=== PATIENT | male | born 1980 | race Caucasian/White ===

== ENCOUNTER 2019-12-21 13:52 | Emergency (ER) | payer OTHER ==
[2019-12-21 14:08] VITALS: BP 150/87; PULSE 99; RESP 18; TEMP 98.5
--- NOTE | 2019-12-21 14:40 | ED ---
General Adult HPI - General Chief complaint: Recheck/Abnormal Lab/Rx Stated complaint: Medication Refills Time Seen by Provider: 12/21/19 14:10 Source: patient, RN notes reviewed Mode of arrival: ambulatory Limitations: no limitations - History of Present Illness Initial comments: 39-year-old male present to the emergency Department with chief complaint of needing medication refill. Patient recently moved from [place] to [place] for work. Patient states that he was on Xanax 2 mg twice a day for several years. Patient states that he's been out for 2 days. Patient states that he feels very shaky. Patient also states that he is out of his amlodipine 10 mg. Patient denies any suicidal or homicidal ideation. Patient states that he does not want to withdrawal from his medication. - Related Data Previous Rx's Medication Instructions Recorded ALPRAZolam [Xanax] 2 mg PO Q8H 3 Days #9 tab 12/21/19 amLODIPine [Norvasc] 10 mg PO DAILY #30 tablet 12/21/19 Allergies Allergy/AdvReac Type Severity Reaction Status Date / Time No Known Allergies Allergy Verified 12/21/19 14:07 Review of Systems ROS Statement: Those systems with pertinent positive or pertinent negative responses have been documented in the HPI. ROS Other: All systems not noted in ROS Statement are negative. Past Medical History Past Medical History: Hypertension Additional Past Medical History / Comment(s): anemi, vascular issue in legs. Past Surgical History: Adenoidectomy, Tonsillectomy Past Psychological History: Anxiety, Depression Smoking Status: Current every day smoker Past Alcohol Use History: Rare Past Drug Use History: Marijuana General Exam Limitations: no limitations General appearance: alert, in no apparent distress Head exam: Present: atraumatic, normocephalic, normal inspection ENT exam: Present: normal exam, mucous membranes moist Neck exam: Present: normal inspection, full ROM. Absent: tenderness, meningismus, lymphadenopathy Respiratory exam: Present: normal lung sounds bilaterally. Absent: respiratory distress, wheezes, rales, rhonchi, stridor Cardiovascular Exam: Present: regular rate, normal rhythm, normal heart sounds. Absent: systolic murmur, diastolic murmur, rubs, gallop, clicks Neurological exam: Present: alert, oriented X3, CN II-XII intact Course Vital Signs 12/21/19 14:04 Temperature 98.5 F Pulse Rate 99 Respiratory 18 Rate Blood Pressure 150/87 O2 Sat by Pulse 98 Oximetry Medical Decision Making - Medical Decision Making Patient does have prescription bottles with him. Patient had last refill 11/19/2019. Patient will be given a 3 day prescription for his Xanax and a 30 day supply of Norvasc. Disposition Clinical Impression: Encounter for medication refill, Hypertension, Anxiety Disposition: HOME SELF-CARE Condition: Stable Instructions (If sedation given, give patient instructions): Hypertension (ED) Additional Instructions: Please return to the Emergency Department if symptoms worsen or any other concerns. Prescriptions: amLODIPine [Norvasc] 10 mg PO DAILY #30 tablet ALPRAZolam [Xanax] 2 mg PO Q8H 3 Days #9 tab Is patient prescribed a controlled substance at d/c from ED?: Yes When asked, does pt state using other controlled substances?: No If prescribed controlled substance>3 days was MAPS reviewed?: Prescribed <3 Days Referrals: None,Stated [Primary Care Provider] - 1-2 days Jose G Harrell MD [REFERRING] - 1-2 days Time of Disposition: 14:38
== END 2019-12-21 14:53 | disposition home or self-care (01) ==
LOC: EC 13:52
DX: Z76.0 Encounter for issue of repeat prescription (principal); I10 Essential (primary) hypertension; F41.9 Anxiety disorder, unspecified; F17.200 Nicotine dependence, unspecified, uncomplicated
CPT/HCPCS: 99281

== ENCOUNTER 2019-12-24 09:47 | Emergency (ER) | payer OTHER ==
[2019-12-24 10:00] VITALS: BP 120/83; PULSE 102; RESP 18; TEMP 97.6
[2019-12-24] MEDS ORDERED: ALPRAZolam 0.25 MG TAB PO STA (10:04)
[2019-12-24] MEDS ORDERED: ALPRAZolam 0.5 MG TAB PO STA (10:12)
[2019-12-24 10:19] LABS: Glucose,Whole Blood 101 mg/dL (75-99)
--- NOTE | 2019-12-24 10:22 | ED ---
Recheck HPI - General Chief Complaint: Recheck/Abnormal Lab/Rx Stated Complaint: Revisit - med refill Time Seen by Provider: 12/24/19 10:01 Source: patient Mode of arrival: ambulatory Limitations: no limitations - History of Present Illness Initial Comments: 39yo male presenting to the ER today for cc of medication refill. Pt states he is out of his xanax that he was prescribed 3 days ago. Patient states he normally takes 2mg tablets. Patient states he is attempting to get into his PCP office. Patient denies chest pain, SOB or additional complaints. He appears well nontoxic in jovial spirits on arrival. - Related Data Previous Rx's Medication Instructions Recorded ALPRAZolam [Xanax] 2 mg PO Q8H 3 Days #9 tab 12/21/19 amLODIPine [Norvasc] 10 mg PO DAILY #30 tablet 12/21/19 Allergies Allergy/AdvReac Type Severity Reaction Status Date / Time No Known Allergies Allergy Verified 12/24/19 10:00 Review of Systems ROS Statement: Those systems with pertinent positive or pertinent negative responses have been documented in the HPI. ROS Other: All systems not noted in ROS Statement are negative. Past Medical History Past Medical History: Hypertension Additional Past Medical History / Comment(s): anemi, vascular issue in legs. Past Surgical History: Adenoidectomy, Tonsillectomy Past Psychological History: Anxiety, Depression Smoking Status: Current every day smoker Past Alcohol Use History: Rare Past Drug Use History: Marijuana General Exam - General Exam Comments Initial Comments: General: The patient is awake and alert, in no distress, and does not appear acutely ill. Eye: Pupils are equal, round and reactive to light, extra-ocular movements are intact. No nystagmus. There is normal conjunctiva bilaterally. No signs of icterus. Musculoskeletal: Normal ROM, no tenderness. Strength 5/5. Sensation intact. Radial pulses equal bilaterally 2+. Neurological: A&O x 3. CN II-XII intact grossly, There are no obvious motor or sensory deficits. Coordination appears grossly intact. Speech is normal. Skin: Skin is warm and dry and no rashes or lesions are noted. Psychiatric: Cooperative, appropriate mood & affect, normal judgment. Limitations: no limitations Course Vital Signs 12/24/19 09:57 Temperature 97.6 F Pulse Rate 102 H Respiratory 18 Rate Blood Pressure 120/83 O2 Sat by Pulse 98 Oximetry Medical Decision Making - Medical Decision Making Well appearing 39yo male presenting with anxiety. Out of xanax. prescribed 3 days agos. At this time I recommend getting further refills from his PCP not multiple providers. Patient is agreeable to dose in the ER and discharge home. Patient wanted glucose checked and it was within acceptable limits. - Lab Data Lab Results 12/24/19 Range/Units 10:17 POC Glucose (mg/dL) 101 H (75-99) mg/dL POC Glu Laboratory Technical Specialist ID Ronaldo Tierney Disposition Clinical Impression: Medication refill, Anxiety Disposition: HOME SELF-CARE Condition: Good Instructions (If sedation given, give patient instructions): Anxiety (ED) Additional Instructions: Please use medication as discussed. Please follow-up with family doctor in the next 2 days. Please return to emergency room if the symptoms increase or worsen or for any other concerns. Is patient prescribed a controlled substance at d/c from ED?: No Referrals: None,Stated [Primary Care Provider] - 1-2 days Time of Disposition: 10:19
== END 2019-12-24 11:13 | disposition home or self-care (01) ==
LOC: EC 09:47
DX: F41.9 Anxiety disorder, unspecified (principal); Z76.0 Encounter for issue of repeat prescription; F17.200 Nicotine dependence, unspecified, uncomplicated
CPT/HCPCS: 36415; 99283

== ENCOUNTER → 2020-05-31 | Outpatient (CLI) | payer OTHER ==
--- NOTE | 2020-05-31 11:20 | US ---
EXAMINATION TYPE: US liver DATE OF EXAM: 05/31/2020 COMPARISON: NONE CLINICAL HISTORY: B18.2 Chronic viral hepatitis C. EXAM MEASUREMENTS: Liver Length: 18.8 cm, possibly underestimated, suspect the liver is enlarged Gallbladder Wall: 0.2 cm CBD: 0.5 cm Right Kidney: 11.9 x 6.3 x 5.0 cm Pancreas: ? 3.5 cm hypoechoic, irregular mass head/body portion, possibly uncinate process Liver: Partially Obscured by overlying bowel gas and the echotexture is somewhat coarse Gallbladder: Large gallstone Evidence for sonographic Velazco's sign: No CBD: wnl Right Kidney: No hydronephrosis or masses seen Sub optimal exam overall due to very large patient size. IMPRESSION: The pancreas is incompletely evaluated. Hypoechoic abnormality may be adjacent to the sandhu creas rather than within the pancreatic head and body. Pancreas CT or MRI may be of benefit. Cholelit hiasis. Coarse echotexture of the liver consistent with underlying hepatocellular disease, suspect he patomegaly.
== END | disposition home or self-care (01) ==
LOC: RADUSWWP 07:06
PROVIDERS: ATTEND Nurse Practitioner
DX: B18.2 Chronic viral hepatitis C (principal); K80.20 Calculus of gallbladder without cholecystitis without obstruction; R93.3 Abnormal findings on diagnostic imaging of other parts of digestive tract
CPT/HCPCS: 76705

== ENCOUNTER → 2020-06-01 | Outpatient (CLI) | payer OTHER ==
[2020-06-01 17:32] LABS: INR 0.9 (0.90-1.11); Prothrombin Time 9.9 sec (9.9-11.9)
[2020-06-01 17:42] LABS: African American GFR (CKD) 125.1 (60.0-200.0); Albumin 4.8 g/dL (3.80-4.90); Albumin/Globulin Ratio 1.78 (1.60-3.17); Anion Gap 14.7 mmol/L (4.00-12.00); BUN/Creat Ratio 18.89 Ratio (12.00-20.00); Calcium 9.1 mg/dL (8.7-10.3); Carbon Dioxide 21.3 mmol/L (21.6-31.8); Globulin 2.7 g/dL (1.6-3.3); Potassium 4.3 mmol/L (3.5-5.5); Total Bilirubin 0.5 mg/dL (0.3-1.2); Total Protein 7.5 g/dL (6.2-8.2)
[2020-06-01 18:11] LABS: HIV 2 AB Non-Reactive (Non-Reactive); HIV AB P24 Non-Reactive (Non-Reactive); HIV P24 AG Non-Reactive (Non-Reactive)
== END | disposition home or self-care (01) ==
LOC: LABWHC1 08:29
PROVIDERS: ATTEND Nurse Practitioner
DX: B18.2 Chronic viral hepatitis C (principal)
CPT/HCPCS: 36415; 80053; 82105; 85610; 87390; 87522

== ENCOUNTER → 2020-06-10 | Outpatient (CLI) | payer OTHER ==
--- NOTE | 2020-06-11 07:37 | CT ---
EXAMINATION TYPE: CT abdomen w con DATE OF EXAM: 06/10/2020 COMPARISON: None HISTORY: Abnormal findings on US, r/o uncinate v liver lesion CT DLP: 2049.80 mGycm Automated exposure control for dose reduction was used. TECHNIQUE: Helical acquisition of images was performed from the lung bases through the top of iliac crest to include entire abdomen. CONTRAST: Performed without Oral Contrast and with IV Contrast, patient injected with 100 mL of Isovue 370. FINDINGS: The visualized lung bases are clear. There are no gallstones, gallbladder wall thickening, distention or pericholecystic fluid. There is n o biliary ductal dilatation. There is no focal mass or organomegaly of the liver pancreas, spleen or adrenal glands. The kidneys excrete contrast promptly and symmetrically. There is a 2.5 cm hypodense mass in the post erior left kidney which does not meet the criteria for simple cyst. MRI of the kidneys might be usefu l for further evaluation there is no hydronephrosis. There is no retroperitoneal adenopathy or hemorrhage in the caliber of the abdominal aorta is normal. The bowel loops are normal in caliber and there is no evidence of obstruction. No inflammatory change s are identified in the mesentery and there is no free intraperitoneal air or fluid. The visualized osseous structures and soft tissues are intact. IMPRESSION: 1. No significant abnormality liver pancreas. 2.The left kidney which requires further evaluation of a 2.5 cm mass which is nonspecific criteria fo r simple cyst. MRI would be useful for further evaluation.
== END | disposition home or self-care (01) ==
LOC: RADCTMAIN 18:11
PROVIDERS: ATTEND Internal Medicine Gastroenterology
DX: N28.1 Cyst of kidney, acquired (principal)
CPT/HCPCS: 74160; Q9967

== ENCOUNTER 2020-11-05 21:06 | Emergency (ER) | payer OTHER ==
[2020-11-05 21:20] VITALS: RESP 18; TEMP 98.8
[2020-11-05] MEDS: KETOROLAC 15 MG/ML 1 ML VIAL IM STA (22:08)
[2020-11-05] MEDS: CYCLOBENZAPRINE 10 MG TAB PO STA (22:08)
--- NOTE | 2020-11-05 22:38 | XR ---
EXAMINATION TYPE: XR lumbar spine 2 or 3V DATE OF EXAM: 11/05/2020 COMPARISON: NONE HISTORY: Back pain TECHNIQUE: 3 views FINDINGS: There is mild dextroscoliosis. There is degenerative disc space narrowing in the lower lumb ar spine. There is no compression fracture. Sacroiliac joints are intact. IMPRESSION: Dextroscoliosis. No fracture seen. Spondylotic changes.
--- NOTE | 2020-11-05 22:40 | ED ---
Back Pain HPI - General Chief Complaint: Back Pain/Injury Stated Complaint: back pain Time Seen by Provider: 11/05/20 21:23 Source: patient, RN notes reviewed Limitations: no limitations - History of Present Illness Initial Comments: Patient is a 40-year-old male that presents to emergency, complaining of right lower back pain or he notes that he twisted antibiotic motion and felt some pain in his lower back. He notes that this was at work. Hetry to go back to work as has been a year since she's been there. He notes that he does have some medical issues with vascular and circulation his bilateral lower extremities. He denied any weakness numbness tingling down his bilateral lower extremities. He denied any saddle anesthesia or bladder or bowel incontinence or retention. He was otherwise a well-appearing 40-year-old male. He was requesting some muscle relaxers to help with the tightness. He denied any chest pain shortness of breath headache nausea vomiting diarrhea constipation fever fatigue chills. - Related Data Previous Rx's Medication Instructions Recorded ALPRAZolam [Xanax] 2 mg PO Q8H 3 Days #9 tab 12/21/19 amLODIPine [Norvasc] 10 mg PO DAILY #30 tablet 12/21/19 Allergies Allergy/AdvReac Type Severity Reaction Status Date / Time No Known Allergies Allergy Verified 11/05/20 21:20 Review of Systems ROS Statement: Those systems with pertinent positive or pertinent negative responses have been documented in the HPI. ROS Other: All systems not noted in ROS Statement are negative. Past Medical History Past Medical History: Hypertension Additional Past Medical History / Comment(s): anemi, vascular issue in legs. History of Any Multi-Drug Resistant Organisms: None Reported Past Surgical History: Adenoidectomy, Tonsillectomy Past Psychological History: Anxiety, Depression Smoking Status: Current every day smoker Past Alcohol Use History: Rare Past Drug Use History: Marijuana General Exam Limitations: no limitations General appearance: alert, in no apparent distress, obese Head exam: Present: atraumatic, normocephalic, normal inspection Eye exam: Present: normal appearance, PERRL, EOMI. Absent: scleral icterus, conjunctival injection, periorbital swelling Neck exam: Present: normal inspection Respiratory exam: Present: normal lung sounds bilaterally. Absent: respiratory distress, wheezes, rales, rhonchi, stridor Cardiovascular Exam: Present: regular rate, normal rhythm, normal heart sounds. Absent: systolic murmur, diastolic murmur, rubs, gallop, clicks Extremities exam: Present: normal inspection, full ROM, normal capillary refill. Absent: tenderness, pedal edema, joint swelling, calf tenderness Back exam: Present: normal inspection, tenderness (Right lower back.), muscle spasm (Right lower back) Neurological exam: Present: alert, oriented X3 Psychiatric exam: Present: normal affect, normal mood Skin exam: Present: warm, dry, intact, normal color. Absent: rash Course Vital Signs 11/05/20 21:18 Temperature 98.8 F Pulse Rate 88 Respiratory 18 Rate Blood Pressure 128/65 O2 Sat by Pulse 97 Oximetry Medical Decision Making - Medical Decision Making 40-year-old male complaining of right lower back pain after twisting wouldn't work. X-ray of the lumbar spine, 10 mg of Flexeril, 15 g of Toradol ordered. X-ray imaging negative for any acute process. Case discussed with Dr. Osullivan, patient can discharge home. - Radiology Data Radiology results: report reviewed, image reviewed Lumbar spine x-ray: Dextrose scoliosis. No fracture seen. Spondylitic changes. Disposition Clinical Impression: Lumbar strain, Mechanical back pain Disposition: HOME SELF-CARE Condition: Stable Instructions (If sedation given, give patient instructions): Acute Low Back Pain (ED) Additional Instructions: Please return to the Emergency Department if symptoms worsen or any other concerns. Follow-up with primary care 1-2 days. Take muscle relaxer as prescribed. Avoid operating heavy machinery while on muscle relaxer. Is patient prescribed a controlled substance at d/c from ED?: No Referrals: Ceferino Smith MD [Primary Care Provider] - 1-2 days Time of Disposition: 22:53
[2020-11-05] MEDS: CYCLOBENZAPRINE 10MG STARTER 3 TAB BTL PO STA (22:59)
[2020-11-05 23:03] VITALS: BP 121/83; PULSE 81
== END 2020-11-05 23:01 | disposition home or self-care (01) ==
LOC: EC 21:06
DX: S39.012A Strain of muscle, fascia and tendon of lower back, initial encounter (principal); I10 Essential (primary) hypertension; F32.9 Major depressive disorder, single episode, unspecified; F41.9 Anxiety disorder, unspecified; F17.200 Nicotine dependence, unspecified, uncomplicated; F12.90 Cannabis use, unspecified, uncomplicated; X50.1XXA Overexertion from prolonged static or awkward postures, initial encounter; Y99.0 Civilian activity done for income or pay
CPT/HCPCS: 72100; 96372; 99283

== ENCOUNTER 2021-04-29 17:42 | Observation (INO) | payer OTHER ==
--- NOTE | 2021-04-29 19:08 | ED ---
General Adult HPI - General Chief complaint: Extremity Problem,Nontraumatic Stated complaint: cellulitis Time Seen by Provider: 04/29/21 18:59 Source: patient, EMS Mode of arrival: EMS Limitations: no limitations - History of Present Illness Initial comments: Patient presents to the ED by ambulance for evaluation. Patient states that he has had bilateral lower extremity edema for the past month or so. Patient also states that he has had bilateral lower leg erythema and pain for the past month or so. Patient states that his primary care provider (Dr. Smith) prescribed him a course of Augmentin, which he has completed without any improvement in his signs/symptoms. Patient also states that he has a left lower leg wound which has been draining serous fluid. Patient denies fever or chills, headache, focal neuro deficit, chest pain or pressure, dyspnea, orthopnea, cough or cold symptoms, palpitations, dizziness, abdominal pain, nausea/vomiting/diarrhea, dysuria or urinary symptoms, decreased urine output, or any other symptoms or complaints. - Related Data Previous Rx's Medication Instructions Recorded ALPRAZolam [Xanax] 2 mg PO Q8H 3 Days #9 tab 12/21/19 amLODIPine [Norvasc] 10 mg PO DAILY #30 tablet 12/21/19 Cyclobenzaprine [Flexeril] 10 mg PO TID PRN #15 tab 11/05/20 Allergies Allergy/AdvReac Type Severity Reaction Status Date / Time No Known Allergies Allergy Verified 11/05/20 21:20 Review of Systems ROS Statement: Those systems with pertinent positive or pertinent negative responses have been documented in the HPI. ROS Other: All systems not noted in ROS Statement are negative. Past Medical History Past Medical History: Hypertension Additional Past Medical History / Comment(s): anemi, vascular issue in legs. History of Any Multi-Drug Resistant Organisms: None Reported Past Surgical History: Adenoidectomy, Tonsillectomy Past Psychological History: Anxiety, Depression Smoking Status: Current every day smoker Past Alcohol Use History: Rare Past Drug Use History: Marijuana General Exam Limitations: no limitations General appearance: alert, in no apparent distress Head exam: Present: atraumatic, normocephalic Eye exam: Present: normal appearance, EOMI ENT exam: Present: mucous membranes moist Neck exam: Present: other (Trachea is in midline) Respiratory exam: Present: normal lung sounds bilaterally. Absent: respiratory distress, wheezes, rales, rhonchi, stridor Cardiovascular Exam: Present: regular rate, normal rhythm, normal heart sounds, other (Normal radial and dorsalis pedis pulses bilaterally) GI/Abdominal exam: Present: soft. Absent: distended, tenderness, guarding Extremities exam: Present: other (Bilateral pretibial and pedal pitting edema; bilateral hand pitting edema; blanching erythema and tenderness (consistent with cellulitis) is noted to bilateral lower tibial regions; no crepitation is appreciated; small left tibial wound draining serous fluid; negative Homans sign bilaterally). Absent: calf tenderness Neurological exam: Present: alert, oriented X3. Absent: motor sensory deficit Psychiatric exam: Present: normal affect, normal mood Skin exam: Present: warm, dry Course Vital Signs 04/29/21 17:48 Temperature 98.9 F Pulse Rate 86 Respiratory 18 Rate Blood Pressure 118/82 O2 Sat by Pulse 98 Oximetry - Reevaluation(s) Reevaluation #1: 04/29/21 20:37 Case, H&P, test results and ED management were discussed with Dr. Smith. He accepts hospital admission. He has no further recommendations at this time. 04/29/21 20:43 Patient denies development of any new symptoms while in the ED. Patient remains alert and breathing comfortably. Patient is aware of his test results, and he agrees with hospital admission at this time. EKG Findings - EKG Comments: EKG Findings:: Normal sinus rhythm, ventricular rate of 62 bpm, no ectopy, low voltage QRS, normal OK and QRS intervals, normal QT interval, normal axis, no ST or T-wave abnormality Medical Decision Making - Medical Decision Making Given the patient's diffuse peripheral edema, bilateral lower leg cellulitis and failed outpatient treatment with oral antibiotics, will admit the patient to the hospital for IV antibiotic treatment and further evaluation. Patient is afebrile and not septic. Patient's labs are fairly unremarkable. I am uncertain of the etiology of the patient's diffuse peripheral edema at this time. Dr. Smith has accepted hospital admission. - Lab Data Result diagrams: 04/29/21 19:09 04/29/21 19:09 Lab Results 04/29/21 04/29/21 04/29/21 Range/Units 19: 19: 19:09 WBC 6.3 (3.8-10.6) k/uL RBC 4.09 L (4.30-5.90) m/uL Hgb 11.8 L (13.0-17.5) gm/dL Hct 34.9 L (39.0-53.0) % MCV 85.2 (80.0-100.0) fL MCH 28.8 (25.0-35.0) pg MCHC 33.9 (31.0-37.0) g/dL RDW 13.6 (11.5-15.5) % Plt Count 157 (150-450) k/uL MPV 7.1 Neutrophils % 65 % Lymphocytes % 25 % Monocytes % 6 % Eosinophils % 2 % Basophils % 1 % Neutrophils # 4.1 (1.3-7.7) k/uL Lymphocytes # 1.5 (1.0-4.8) k/uL Monocytes # 0.4 (0-1.0) k/uL Eosinophils # 0.1 (0-0.7) k/uL Basophils # 0.1 (0-0.2) k/uL PT 10.7 (9.0-12.0) sec INR 1.0 (<1.2) APTT 26.0 (22.0-30.0) sec Sodium 138 (137-145) mmol/L Potassium 4.0 (3.5-5.1) mmol/L Chloride 102 (98-107) mmol/L Carbon Dioxide 29 (22-30) mmol/L Anion Gap 7 mmol/L BUN 10 (9-20) mg/dL Creatinine 0.88 (0.66-1.25) mg/dL Est GFR (CKD-EPI)AfAm >90 (>60 ml/min/1.73 sqM) Est GFR (CKD-EPI)NonAf >90 (>60 ml/min/1.73 sqM) Glucose 90 (74-99) mg/dL Plasma Lactic Acid Martin (0.7-2.0) mmol/L Calcium 9.0 (8.4-10.2) mg/dL Total Bilirubin 0.6 (0.2-1.3) mg/dL AST 21 (17-59) U/L ALT 14 (4-49) U/L Alkaline Phosphatase 55 (38-126) U/L Troponin I (0.000-0.034) ng/mL NT-Pro-B Natriuret Pep pg/mL Total Protein 7.5 (6.3-8.2) g/dL Albumin 4.2 (3.5-5.0) g/dL Urine Color Urine Appearance (Clear) Urine pH (5.0-8.0) Ur Specific [place] (1.001-1.035) Urine Protein (Negative) Urine Glucose (UA) (Negative) Urine Ketones (Negative) Urine Blood (Negative) Urine Nitrite (Negative) Urine Bilirubin (Negative) Urine Urobilinogen (<2.0) mg/dL Ur Leukocyte Esterase (Negative) Coronavirus (PCR) (Not Detectd) 04/29/21 04/29/21 04/29/21 Range/Units 19:09 19:09 19:32 WBC (3.8-10.6) k/uL RBC (4.30-5.90) m/uL Hgb (13.0-17.5) gm/dL Hct (39.0-53.0) % MCV (80.0-100.0) fL MCH (25.0-35.0) pg MCHC (31.0-37.0) g/dL RDW (11.5-15.5) % Plt Count (150-450) k/uL MPV Neutrophils % % Lymphocytes % % Monocytes % % Eosinophils % % Basophils % % Neutrophils # (1.3-7.7) k/uL Lymphocytes # (1.0-4.8) k/uL Monocytes # (0-1.0) k/uL Eosinophils # (0-0.7) k/uL Basophils # (0-0.2) k/uL PT (9.0-12.0) sec INR (<1.2) APTT (22.0-30.0) sec Sodium (137-145) mmol/L Potassium (3.5-5.1) mmol/L Chloride (98-107) mmol/L Carbon Dioxide (22-30) mmol/L Anion Gap mmol/L BUN (9-20) mg/dL Creatinine (0.66-1.25) mg/dL Est GFR (CKD-EPI)AfAm (>60 ml/min/1.73 sqM) Est GFR (CKD-EPI)NonAf (>60 ml/min/1.73 sqM) Glucose (74-99) mg/dL Plasma Lactic Acid Martin (0.7-2.0) mmol/L Calcium (8.4-10.2) mg/dL Total Bilirubin (0.2-1.3) mg/dL AST (17-59) U/L ALT (4-49) U/L Alkaline Phosphatase (38-126) U/L Troponin I <0.012 (0.000-0.034) ng/mL NT-Pro-B Natriuret Pep 105 pg/mL Total Protein (6.3-8.2) g/dL Albumin (3.5-5.0) g/dL Urine Color Light Yellow Urine Appearance Clear (Clear) Urine pH 7.0 (5.0-8.0) Ur Specific [place] 1.006 (1.001-1.035) Urine Protein Negative (Negative) Urine Glucose (UA) Negative (Negative) Urine Ketones Negative (Negative) Urine Blood Negative (Negative) Urine Nitrite Negative (Negative) Urine Bilirubin Negative (Negative) Urine Urobilinogen <2.0 (<2.0) mg/dL Ur Leukocyte Esterase Negative (Negative) Coronavirus (PCR) (Not Detectd) 04/29/21 04/29/21 Range/Units 19:32 19:32 WBC (3.8-10.6) k/uL RBC (4.30-5.90) m/uL Hgb (13.0-17.5) gm/dL Hct (39.0-53.0) % MCV (80.0-100.0) fL MCH (25.0-35.0) pg MCHC (31.0-37.0) g/dL RDW (11.5-15.5) % Plt Count (150-450) k/uL MPV Neutrophils % % Lymphocytes % % Monocytes % % Eosinophils % % Basophils % % Neutrophils # (1.3-7.7) k/uL Lymphocytes # (1.0-4.8) k/uL Monocytes # (0-1.0) k/uL Eosinophils # (0-0.7) k/uL Basophils # (0-0.2) k/uL PT (9.0-12.0) sec INR (<1.2) APTT (22.0-30.0) sec Sodium (137-145) mmol/L Potassium (3.5-5.1) mmol/L Chloride (98-107) mmol/L Carbon Dioxide (22-30) mmol/L Anion Gap mmol/L BUN (9-20) mg/dL Creatinine (0.66-1.25) mg/dL Est GFR (CKD-EPI)AfAm (>60 ml/min/1.73 sqM) Est GFR (CKD-EPI)NonAf (>60 ml/min/1.73 sqM) Glucose (74-99) mg/dL Plasma Lactic Acid Martin 0.8 (0.7-2.0) mmol/L Calcium (8.4-10.2) mg/dL Total Bilirubin (0.2-1.3) mg/dL AST (17-59) U/L ALT (4-49) U/L Alkaline Phosphatase (38-126) U/L Troponin I (0.000-0.034) ng/mL NT-Pro-B Natriuret Pep pg/mL Total Protein (6.3-8.2) g/dL Albumin (3.5-5.0) g/dL Urine Color Urine Appearance (Clear) Urine pH (5.0-8.0) Ur Specific [place] (1.001-1.035) Urine Protein (Negative) Urine Glucose (UA) (Negative) Urine Ketones (Negative) Urine Blood (Negative) Urine Nitrite (Negative) Urine Bilirubin (Negative) Urine Urobilinogen (<2.0) mg/dL Ur Leukocyte Esterase (Negative) Coronavirus (PCR) Not Detected (Not Detectd) - Radiology Data Bilateral tib/fib x-rays: Soft tissue swelling. No fracture seen. Disposition Clinical Impression: Peripheral edema, Bilateral lower leg cellulitis Disposition: ADMITTED IP TO THIS HOSP Condition: Stable Is patient prescribed a controlled substance at d/c from ED?: No Referrals: Ceferino Smith MD [Primary Care Provider] - 1-2 days Time of Disposition: 20:43
[2021-04-29 19:20] LABS: Basophils # (A) 0.1 k/uL (0-0.2); Basophils % (A) 1 %; Eosinophils # (A) 0.1 k/uL (0-0.7); Eosinophils % (A) 2 %; HCT 34.9 % (39.0-53.0); HGB 11.8 gm/dL (13.0-17.5); Lymphocytes # (A) 1.5 k/uL (1.0-4.8); Lymphocytes % (A) 25 %; MCH 28.8 pg (25.0-35.0); MCHC 33.9 g/dL (31.0-37.0); MCV 85.2 fL (80.0-100.0); Mean Platelet Volume 7.1; Monocytes # (A) 0.4 k/uL (0-1.0); Monocytes % (A) 6 %; Neutrophils # (A) 4.1 k/uL (1.3-7.7); Neutrophils % (A) 65 %; Platelet Count 157 k/uL (150-450); RBC 4.09 m/uL (4.30-5.90); RDW 13.6 % (11.5-15.5); WBC 6.3 k/uL (3.8-10.6)
[2021-04-29 19:31] LABS: ALT 14 U/L (4-49); AST 21 U/L (17-59); African American GFR (CKD) >90 (>60 ml/min/1.73 sqM); Albumin 4.2 g/dL (3.5-5.0); Alkaline Phosphatase 55 U/L (38-126); Anion Gap 7 mmol/L; Blood Urea Nitrogen 10 mg/dL (9-20); Carbon Dioxide 29 mmol/L (22-30); Chloride 102 mmol/L (98-107); Glucose 90 mg/dL (74-99); Non-African American GFR(CKD) >90 (>60 ml/min/1.73 sqM); Sodium 138 mmol/L (137-145); Total Bilirubin 0.6 mg/dL (0.2-1.3); Total Protein 7.5 g/dL (6.3-8.2)
[2021-04-29 19:32] LABS: Prothrombin Time 10.7 sec (9.0-12.0)
[2021-04-29 19:55] LABS: Appearance,Urine Clear (Clear); Bilirubin,Urine Negative (Negative); Blood,Urine Negative (Negative); Color,Urine Light Yellow; Glucose,Urine (UA) Negative (Negative); Ketones,Urine Negative (Negative); Leukocyte Esterase,Urine Negative (Negative); Nitrite,Urine Negative (Negative); Protein,Urine Negative (Negative); Specific Gravity,Urine 1.006 (1.001-1.035); Urobilinogen,Urine <2.0 mg/dL (<2.0)
[2021-04-29] MEDS ORDERED: VANCOMYCIN IV PER PHARMACY 1 EACH MISC MISCELLANE STA (20:00)
[2021-04-29] MEDS ORDERED: VANCOMYCIN 2,000 MG in SODIUM CHLORIDE 0.9% 500 ML 500 ML IVPB STA (20:02)
--- NOTE | 2021-04-29 20:36 | XR ---
EXAMINATION TYPE: XR tibia fibula bilateral DATE OF EXAM: 04/29/2021 COMPARISON: NONE HISTORY: Leg redness TECHNIQUE: 4 views each tibia and fibula FINDINGS: There is bilateral Achilles calcaneal spurring. There is mild subcutaneous edema around the lower legs. I see no fracture nor dislocation. There is no evidence of bone destruction. IMPRESSION: Soft tissue swelling. No fracture seen.
[2021-04-29] MEDS ORDERED: MORPHINE SULFATE 4 MG/ML SYRINGE IV PRN (20:44)
[2021-04-29] MEDS ORDERED: NALOXONE 0.4 MG/ML 1 ML VIAL IV PRN (20:44)
[2021-04-30] MEDS ORDERED: VANCOMYCIN 2,000 MG in SODIUM CHLORIDE 0.9% 500 ML 500 ML IVPB SCH (05:00)
[2021-04-30 08:15] LABS: Basophils % (A) 1 %; Eosinophils # (A) 0.1 k/uL (0-0.7); Eosinophils % (A) 2 %; HCT 38.5 % (39.0-53.0); HGB 12.5 gm/dL (13.0-17.5); Hypochromasia Slight; Lymphocytes # (A) 1.8 k/uL (1.0-4.8); Lymphocytes % (A) 28 %; MCH 28.4 pg (25.0-35.0); MCHC 32.4 g/dL (31.0-37.0); MCV 87.7 fL (80.0-100.0); Mean Platelet Volume 6.6; Monocytes # (A) 0.4 k/uL (0-1.0); Monocytes % (A) 5 %; Neutrophils # (A) 4.2 k/uL (1.3-7.7); Neutrophils % (A) 63 %; Platelet Count 170 k/uL (150-450); RBC 4.39 m/uL (4.30-5.90); WBC 6.6 k/uL (3.8-10.6)
[2021-04-30 08:27] LABS: ALT 14 U/L (4-49); AST 24 U/L (17-59); African American GFR (CKD) >90 (>60 ml/min/1.73 sqM); Albumin 4.1 g/dL (3.5-5.0); Alkaline Phosphatase 48 U/L (38-126); Anion Gap 10 mmol/L; Blood Urea Nitrogen 10 mg/dL (9-20); Calcium 9.1 mg/dL (8.4-10.2); Carbon Dioxide 25 mmol/L (22-30); Chloride 107 mmol/L (98-107); Glucose 108 mg/dL (74-99); Non-African American GFR(CKD) >90 (>60 ml/min/1.73 sqM); Potassium 4.4 mmol/L (3.5-5.1); Sodium 142 mmol/L (137-145); Total Bilirubin 0.7 mg/dL (0.2-1.3); Total Protein 7.7 g/dL (6.3-8.2)
[2021-04-30] MEDS ORDERED: FUROSEMIDE 40 MG TAB PO STA (13:57)
--- NOTE | 2021-04-30 14:44 | PN ---
PROGRESS NOTE CHIEF COMPLAINT: Swelling in the lower extremities with cellulitis. HISTORY OF PRESENT ILLNESS: This gentleman is about the same. Vancomycin has been started. PHYSICAL EXAM: Vital signs are normal. Chest is clear. Cardiac exam is normal. Abdomen is soft, nontender. Legs are still quite edematous and erythematous below the knees. IMPRESSION: Lower extremity edema, cellulitis. PLAN: Add Lasix 40 mg orally once a day. MMODL / IJN: [id number] /
--- NOTE | 2021-04-30 14:44 | HP ---
HISTORY AND PHYSICAL CHIEF COMPLAINT: Pain and swelling in the lower extremities. HISTORY OF PRESENT ILLNESS: This is another admission for this 40-year-old white male. He has had some edema in the lower extremities with cellulitis for about a month. He was treated with Augmentin, which he says did not help at all. He came to emergency room when it grew more swollen, painful and red. REVIEW OF SYSTEMS: He has had some chills, no fever. He has had no headaches, chest pain, abdominal pain, nausea, vomiting, diarrhea, urinary complaints, etc. Past medical history, family history and personal and social histories include the fact he is not allergic to any medication. HOME MEDICATIONS INCLUDE: Amlodipine 10 mg once a day, vitamin D2, Xanax 1 mg t.i.d. p.r.n., , Subutex 8 mg 3 times a day, and sertraline 100 mg once a day. PHYSICAL EXAMINATION: Blood pressure is 113/69, pulse of 83, temperature 96, and he is afebrile. General: Appears to be obese and in no acute distress. Skin: Color is normal skin is warm, dry. Lymph nodes were not enlarged. Head, ears, eyes, nose, mouth and throat are normal the. Chest is clear. Cardiac exam is normal. Abdomen is soft, nontender, but it is protuberant. Extremities demonstrated edema of both legs from the knees distally with stasis dermatitis and cellulitis of both legs. Pulses good. Neurologically, he is intact. IMPRESSION: 1. Lower extremity edema with cellulitis. 2. Hypertension. PLAN: 1. Bedrest. 2. IV fluids. 3. Stop amlodipine. 4. P.o. Lasix. 5. IV vancomycin. MMODL / IJN: [id number] /
[2021-04-30] MEDS: FUROSEMIDE 40 MG TAB PO SCH (14:51)
[2021-04-30] MEDS: ALPRAZolam 1 MG TAB PO SCH ×2 (17:01→21:39)
[2021-04-30] MEDS: VANCOMYCIN 2,000 MG in SODIUM CHLORIDE 0.9% 500 ML 500 ML IVPB SCH (17:01)
[2021-04-30] MEDS: NICOTINE 21MG/24HR PATCH TRANSDERM SCH (17:01)
[2021-04-30] MEDS: NON FORMULARY DRUG (Buprenorphine Hcl [Subutex] 8 MG Tablet) SUBLINGUAL SCH ×2 (17:02→23:18)
[2021-05-01] MEDS: VANCOMYCIN 2,000 MG in SODIUM CHLORIDE 0.9% 500 ML 500 ML IVPB SCH ×3 (01:25→16:57)
[2021-05-01] MEDS: NON FORMULARY DRUG (Buprenorphine Hcl [Subutex] 8 MG Tablet) SUBLINGUAL SCH ×3 (08:05→21:19)
[2021-05-01] MEDS: ALPRAZolam 1 MG TAB PO SCH ×3 (08:05→21:17)
[2021-05-01] MEDS: FUROSEMIDE 40 MG TAB PO SCH (08:05)
[2021-05-01] MEDS: SERTRALINE 100 MG TAB PO SCH (08:05)
[2021-05-01] MEDS: NICOTINE 21MG/24HR PATCH TRANSDERM SCH (08:05)
[2021-05-01] MEDS ORDERED: VANCOMYCIN TROUGH DUE 1 EACH MISC MISCELLANE ONE (16:00)
[2021-05-01 16:29] LABS: African American GFR (CKD) >90 (>60 ml/min/1.73 sqM); Non-African American GFR(CKD) >90 (>60 ml/min/1.73 sqM)
--- NOTE | 2021-05-01 19:07 | PN ---
PROGRESS NOTE CHIEF COMPLAINT: Lower extremity edema with cellulitis of both legs. HISTORY OF PRESENT ILLNESS: This gentleman is doing fairly well, but he has not dropped a lot of the edema. The legs are still quite erythematous. He has no fever or chills. PHYSICAL EXAMINATION: Chest is clear. Cardiac exam is normal. He still has 3 to 4+ edema of the legs below the knees with an accompanying cellulitis bilaterally. Pulses are good. IMPRESSION: Lower extremity edema with cellulitis. PLAN: Continue with elevation, diuretics and IV antibiotics. MMODL / IJN: [id number] /
[2021-05-02] MEDS: VANCOMYCIN 1,750 MG in SODIUM CHLORIDE 0.9% 500 ML 500 ML IVPB SCH ×2 (00:47→08:21)
[2021-05-02 07:16] VITALS: BP 119/73; PULSE 58; RESP 18; TEMP 97.3
[2021-05-02] MEDS: NON FORMULARY DRUG (Buprenorphine Hcl [Subutex] 8 MG Tablet) SUBLINGUAL SCH (08:17)
[2021-05-02] MEDS: ALPRAZolam 1 MG TAB PO SCH (08:18)
[2021-05-02] MEDS: NICOTINE 21MG/24HR PATCH TRANSDERM SCH (08:18)
[2021-05-02] MEDS: FUROSEMIDE 40 MG TAB PO SCH (08:18)
[2021-05-02] MEDS: SERTRALINE 100 MG TAB PO SCH (08:18)
[2021-05-02] MEDS ORDERED: CEPHALEXIN 500 MG CAP PO SCH (13:00)
[2021-05-02] MEDS ORDERED: TRIAMCINOLONE 0.1% CREAM 80 GM TUBE TOPICAL SCH (13:00)
--- NOTE | 2021-05-02 16:40 | DS ---
DISCHARGE SUMMARY DATE OF DISCHARGE: 05/02/2021 CHIEF COMPLAINT: Swelling, redness in the lower legs. HISTORY OF PRESENT ILLNESS AND PHYSICAL EXAMINATION: Details of this man's history and physical can be found in the initial workup. LABORATORY STUDIES: While he was in the hospital he had laboratory studies, details of which can be found in the laboratory section of his chart. COURSE IN THE HOSPITAL: After admission he was placed on bedrest, started intravenous fluids and IV antibiotics and vancomycin. He was also started on Lasix. Swelling went down slightly and redness was improving. His rash was quite pruritic. It was wondered if this was actually more of a dermatitis problem than a cellulitis. He was afebrile and he was doing well. It was felt that he could probably be discharged on May 02 and followed up as an outpatient. He will go home on Keflex 500 mg q.i.d. and he will be given steroid cream to be applied topically. He will take his usual medications. He will be seen in 2 or 3 days in the office. FINAL DIAGNOSIS: 1. Lower extremity stasis edema. 2. Cellulitis. OPERATIONS: None. CONSULTATIONS: None. He is improved. MMODL / IJN: [id number] /
[2021-05-03] MEDS ORDERED: VANCOMYCIN TROUGH DUE 1 EACH MISC MISCELLANE ONE (08:00)
== END 2021-05-02 12:12 | disposition home or self-care (01) ==
LOC: EC 17:42 → 6NMEDSUR 20:44 → INTOOBSV 05-02 08:21 → OBSVTOIN 05-02 08:21 → UNDODISIN 05-02 12:12
PROVIDERS: ADMIT Family Medicine; ATTEND Family Medicine
DX: L03.115 Cellulitis of right lower limb (principal); L03.116 Cellulitis of left lower limb; L29.9 Pruritus, unspecified; R21 Rash and other nonspecific skin eruption; I10 Essential (primary) hypertension; Z20.822 Contact with and (suspected) exposure to COVID-19; F32.A Depression, unspecified; F41.9 Anxiety disorder, unspecified; F17.210 Nicotine dependence, cigarettes, uncomplicated; Z79.899 Other long term (current) drug therapy; Z90.49 Acquired absence of other specified parts of digestive tract; Z98.890 Other specified postprocedural states
CPT/HCPCS: 99285; 96365; 96366 ×4; 36415; 93005; 83880; 80053 ×2; 82565; 83605; 84484; 85025 ×2; 80202; 85610; 85730; 81003; 87040; 87070; 87205; 87635; 73590; G0378 ×4; S4990 ×3; J3370 ×4; 96374

== ENCOUNTER 2021-07-10 15:53 | Inpatient (IN) | payer OTHER ==
--- NOTE | 2021-07-10 16:58 | ED ---
General Adult HPI - General Chief complaint: Skin/Abscess/Foreign Body Stated complaint: Cellulitis Time Seen by Provider: 07/10/21 16:17 Source: patient, EMS, RN notes reviewed Mode of arrival: EMS Limitations: no limitations - History of Present Illness Initial comments: Patient is a pleasant 41-year-old male presenting to the emergency department with complaints of bilateral lower leg cellulitis. Patient did have similar symptoms and was in the hospital a couple months ago. Patient was discharged from [facility] for one month however symptoms never get better. Patient states there is discomfort bilateral lower legs. Patient states this is not a chronic problem. - Related Data Home Medications Medication Instructions Recorded Confirmed Ergocalciferol (Vitamin D2) 1,250 mcg PO Q14D 04/29/21 07/10/21 [Drisdol (50,000 Iu)] Sertraline HCl [Zoloft] 100 mg PO DAILY 04/29/21 07/10/21 buprenorphine HCL [Subutex] 8 mg SUBLINGUAL BID 04/29/21 07/10/21 ALPRAZolam [Xanax] 2 mg PO BID 07/10/21 07/10/21 Triamcinolone 0.1% Cream [Kenalog 1 applic TOPICAL BID 07/10/21 07/10/21 0.1% Cream] Previous Rx's Medication Instructions Recorded amLODIPine [Norvasc] 10 mg PO DAILY #30 tablet 12/21/19 Furosemide [Lasix] 40 mg PO DAILY #10 tab 05/02/21 Allergies Allergy/AdvReac Type Severity Reaction Status Date / Time No Known Allergies Allergy Verified 07/10/21 18:35 Review of Systems ROS Statement: Those systems with pertinent positive or pertinent negative responses have been documented in the HPI. ROS Other: All systems not noted in ROS Statement are negative. Constitutional: Reports: fever (Patient states a few days ago he had a fever) Eyes: Denies: eye pain ENT: Denies: ear pain Respiratory: Denies: cough Cardiovascular: Denies: chest pain Endocrine: Denies: fatigue Gastrointestinal: Denies: abdominal pain Genitourinary: Denies: dysuria Musculoskeletal: Denies: back pain Skin: Reports: as per HPI, rash Past Medical History Past Medical History: Hypertension Additional Past Medical History / Comment(s): anemia, vascular issue in legs, cellulitis in lower legs. arthiritis and scoliosis in spine History of Any Multi-Drug Resistant Organisms: None Reported, MRSA Date of last positivie culture/infection: unknown MDRO Source:: right arm Past Surgical History: Adenoidectomy, Tonsillectomy Past Psychological History: Anxiety, Depression Smoking Status: Current some day smoker Past Alcohol Use History: Rare Past Drug Use History: Marijuana General Exam Limitations: no limitations General appearance: alert, in no apparent distress Head exam: Present: normocephalic Eye exam: Present: normal appearance Neck exam: Present: normal inspection Cardiovascular Exam: Present: regular rate, normal rhythm GI/Abdominal exam: Present: soft. Absent: tenderness Extremities exam: Present: other (Bilateral lower leg cellulitis covering most of the lower leg anterior and posterior) Neurological exam: Present: alert Psychiatric exam: Present: normal affect, normal mood Skin exam: Present: erythema Course Vital Signs 07/10/21 16:07 Temperature 98.5 F Pulse Rate 57 L Respiratory 16 Rate Blood Pressure 112/68 O2 Sat by Pulse 96 Oximetry Medical Decision Making - Medical Decision Making Patient was updated. Case was discussed with Dr. Smith who will admit his patient with consult and agrees with clinda - Lab Data Result diagrams: 07/10/21 16:35 07/10/21 16:35 Lab Results 07/10/21 07/10/21 07/10/21 Range/Units 16:35 16:35 16:35 WBC 9.3 (3.8-10.6) k/uL RBC 4.05 L (4.30-5.90) m/uL Hgb 11.1 L (13.0-17.5) gm/dL Hct 34.4 L (39.0-53.0) % MCV 85.1 (80.0-100.0) fL MCH 27.4 (25.0-35.0) pg MCHC 32.2 (31.0-37.0) g/dL RDW 13.6 (11.5-15.5) % Plt Count 189 (150-450) k/uL MPV 7.0 Neutrophils % 69 % Lymphocytes % 23 % Monocytes % 5 % Eosinophils % 1 % Basophils % 0 % Neutrophils # 6.4 (1.3-7.7) k/uL Lymphocytes # 2.2 (1.0-4.8) k/uL Monocytes # 0.5 (0-1.0) k/uL Eosinophils # 0.1 (0-0.7) k/uL Basophils # 0.0 (0-0.2) k/uL PT 10.8 (9.0-12.0) sec INR 1.0 (<1.2) APTT 25.7 (22.0-30.0) sec Sodium 140 (137-145) mmol/L Potassium 3.5 (3.5-5.1) mmol/L Chloride 106 (98-107) mmol/L Carbon Dioxide 26 (22-30) mmol/L Anion Gap 8 mmol/L BUN 10 (9-20) mg/dL Creatinine 0.81 (0.66-1.25) mg/dL Est GFR (CKD-EPI)AfAm >90 (>60 ml/min/1.73 sqM) Est GFR (CKD-EPI)NonAf >90 (>60 ml/min/1.73 sqM) Glucose 108 H (74-99) mg/dL Plasma Lactic Acid Martin (0.7-2.0) mmol/L Calcium 8.8 (8.4-10.2) mg/dL Total Bilirubin 0.5 (0.2-1.3) mg/dL AST 18 (17-59) U/L ALT 13 (4-49) U/L Alkaline Phosphatase 49 (38-126) U/L Total Protein 7.7 (6.3-8.2) g/dL Albumin 4.2 (3.5-5.0) g/dL 07/10/21 Range/Units 16:35 WBC (3.8-10.6) k/uL RBC (4.30-5.90) m/uL Hgb (13.0-17.5) gm/dL Hct (39.0-53.0) % MCV (80.0-100.0) fL MCH (25.0-35.0) pg MCHC (31.0-37.0) g/dL RDW (11.5-15.5) % Plt Count (150-450) k/uL MPV Neutrophils % % Lymphocytes % % Monocytes % % Eosinophils % % Basophils % % Neutrophils # (1.3-7.7) k/uL Lymphocytes # (1.0-4.8) k/uL Monocytes # (0-1.0) k/uL Eosinophils # (0-0.7) k/uL Basophils # (0-0.2) k/uL PT (9.0-12.0) sec INR (<1.2) APTT (22.0-30.0) sec Sodium (137-145) mmol/L Potassium (3.5-5.1) mmol/L Chloride (98-107) mmol/L Carbon Dioxide (22-30) mmol/L Anion Gap mmol/L BUN (9-20) mg/dL Creatinine (0.66-1.25) mg/dL Est GFR (CKD-EPI)AfAm (>60 ml/min/1.73 sqM) Est GFR (CKD-EPI)NonAf (>60 ml/min/1.73 sqM) Glucose (74-99) mg/dL Plasma Lactic Acid Martin 1.0 (0.7-2.0) mmol/L Calcium (8.4-10.2) mg/dL Total Bilirubin (0.2-1.3) mg/dL AST (17-59) U/L ALT (4-49) U/L Alkaline Phosphatase (38-126) U/L Total Protein (6.3-8.2) g/dL Albumin (3.5-5.0) g/dL Disposition Clinical Impression: Bilateral lower leg cellulitis Disposition: ADMITTED IP TO THIS HOSP Is patient prescribed a controlled substance at d/c from ED?: No Referrals: Ceferino Smith MD [Primary Care Provider] - 1-2 days Time of Disposition: 18:44
[2021-07-10 17:08] LABS: Basophils % (A) 0 %; Eosinophils # (A) 0.1 k/uL (0-0.7); Eosinophils % (A) 1 %; HCT 34.4 % (39.0-53.0); HGB 11.1 gm/dL (13.0-17.5); Lymphocytes # (A) 2.2 k/uL (1.0-4.8); Lymphocytes % (A) 23 %; MCH 27.4 pg (25.0-35.0); MCHC 32.2 g/dL (31.0-37.0); MCV 85.1 fL (80.0-100.0); Monocytes # (A) 0.5 k/uL (0-1.0); Monocytes % (A) 5 %; Neutrophils # (A) 6.4 k/uL (1.3-7.7); Neutrophils % (A) 69 %; Platelet Count 189 k/uL (150-450); RBC 4.05 m/uL (4.30-5.90); RDW 13.6 % (11.5-15.5); WBC 9.3 k/uL (3.8-10.6)
[2021-07-10 17:12] LABS: ALT 13 U/L (4-49); AST 18 U/L (17-59); African American GFR (CKD) >90 (>60 ml/min/1.73 sqM); Albumin 4.2 g/dL (3.5-5.0); Alkaline Phosphatase 49 U/L (38-126); Anion Gap 8 mmol/L; Blood Urea Nitrogen 10 mg/dL (9-20); Calcium 8.8 mg/dL (8.4-10.2); Carbon Dioxide 26 mmol/L (22-30); Chloride 106 mmol/L (98-107); Glucose 108 mg/dL (74-99); Non-African American GFR(CKD) >90 (>60 ml/min/1.73 sqM); Potassium 3.5 mmol/L (3.5-5.1); Sodium 140 mmol/L (137-145); Total Bilirubin 0.5 mg/dL (0.2-1.3); Total Protein 7.7 g/dL (6.3-8.2)
[2021-07-10 17:17] LABS: Partial Thromboplastin Time 25.7 sec (22.0-30.0); Prothrombin Time 10.8 sec (9.0-12.0)
[2021-07-10] MEDS ORDERED: ACETAMINOPHEN TAB 325 MG TAB PO PRN (18:45)
[2021-07-10] MEDS ORDERED: NALOXONE 0.4 MG/ML 1 ML VIAL IV PRN (18:45)
[2021-07-10] MEDS: CLINDAMYCIN 600 MG in DEXTROSE 5% IN WATER 50 ML IVPB SCH ×2 (19:04)
[2021-07-10] MEDS: SODIUM CHLORIDE 0.9% 1,000 ML IV SCH (19:05)
[2021-07-11] MEDS: CLINDAMYCIN 600 MG in DEXTROSE 5% IN WATER 50 ML IVPB SCH ×6 (00:34→15:09)
[2021-07-11] MEDS: SODIUM CHLORIDE 0.9% 1,000 ML IV SCH ×2 (06:34→21:38)
[2021-07-11 09:19] LABS: Basophils # (A) 0.02 X 10*3/uL (0.00-0.10); Basophils % (A) 0.3 %; Eosinophils # (A) 0.06 X 10*3/uL (0.04-0.35); Eosinophils % (A) 0.8 %; HCT 39.9 % (39.6-50.0); HGB 12.3 g/dL (13.0-17.0); Immature Grans, Automated 1.1 %; Lymphocytes # (A) 2.08 X 10*3/uL (0.90-5.00); MCH 27.3 pg (27.0-32.0); MCHC 30.8 g/dL (32.0-37.0); MCV 88.5 fL (80.0-97.0); Mean Platelet Volume 9.6 fL (9.5-12.2); Monocytes # (A) 0.42 X 10*3/uL (0.20-1.00); Monocytes % (A) 5.7 %; NRBC Per 100 WBC 0 /100 WBCS (0.0-0.0); Neutrophils # (A) 4.76 X 10*3/uL (1.80-7.70); Neutrophils % (A) 64.1 %; Platelet Count 186 X 10*3/uL (140-440); RBC 4.51 X 10*6/uL (4.40-5.60); RDW 13.4 % (11.5-14.5); WBC 7.42 X 10*3/uL (4.50-10.00)
[2021-07-11] MEDS: TRIAMCINOLONE 0.1% CREAM 80 GM TUBE TOPICAL SCH (14:56)
--- NOTE | 2021-07-11 17:51 | HP ---
HISTORY AND PHYSICAL CHIEF COMPLAINT: Pain, redness and swelling in the lower extremities. HISTORY OF PRESENT ILLNESS: This is another admission for this 41-year-old white male who is overweight and has had problems with recurrent episodes of cellulitis. This began to flare after he did some vigorous scratching, after which both legs became red, swollen and tender. REVIEW OF SYSTEMS: He has had no headaches, chest pain, shortness of breath, abdominal pain, nausea, vomiting, fever, chills, etc. Past medical history, family history, and personal and social histories reveal that he is NOT ALLERGIC TO ANY MEDICATION. He is on buprenorphine 8 mg twice a day, furosemide, triamcinolone cream, Xanax, Zoloft, amlodipine, vitamin D. The remainder of his history is unremarkable. He does smoke. He does not drink alcohol. PHYSICAL EXAMINATION: Blood pressure 156/80 with a pulse 77, respirations of 18. He is afebrile. In general appeared to be overweight and in no acute distress. Skin color was normal. Skin was warm and dry. Head, ears, eyes, nose, mouth and throat were normal. Chest was clear. Cardiac exam was normal. The abdomen was soft and nontender and protuberant. Extremities were normal except for cellulitis in both legs below the knees with dry, scaly, maculopapular rash. Pulses were good. Neurologically he is intact. IMPRESSION: 1. Cellulitis of the lower extremities. 2. Dependent edema with venostasis changes. PLAN: 1. Bedrest. 2. IV fluids. 3. Elevation. 4. IV antibiotics. MMODL / IJN: [id number] /
--- NOTE | 2021-07-11 17:51 | PN ---
PROGRESS NOTE DATE OF SERVICE: 07/11/2021 CHIEF COMPLAINT: Cellulitis of the lower extremities. HISTORY OF PRESENT ILLNESS: This gentleman is doing fairly well, but he is still quite uncomfortable. There is still significant erythema. antibiotics are being started. PHYSICAL EXAMINATION: Chest is clear. Cardiac exam is normal. Abdomen is soft and nontender. He has lower extremity edema with stasis chronic dermatitis and cellulitis of both lower legs. Peripheral circulation is good. IMPRESSION: Stasis disease and cellulitis of the lower extremities. PLAN: Continue with IV fluids and IV antibiotics along with topical steroid cream and eventual external compression stockings. MMODL / IJN: [id number] /
[2021-07-11] MEDS: NICOTINE 21MG/24HR PATCH TRANSDERM SCH (21:37)
[2021-07-11] MEDS: ALPRAZolam 1 MG TAB PO SCH (21:37)
[2021-07-11] MEDS: NON FORMULARY DRUG (Buprenorphine Hcl [Subutex] 8 MG Tablet) SUBLINGUAL SCH (21:38)
--- NOTE | 2021-07-11 23:29 | P.CONS ---
History of Present Illness - Reason for Consult Consult date: 07/11/21 - History of Present Illness Patient is a 41-year-old male with past medical history significant for depression and hypertension patient mention that he is from [place] however has been visiting for the winter patient started having increasing swelling redness and itching to the lower extremity the patient mention he has been scratching them to the point where it started to bleed subsequently noted to have increasing swelling and redness to bilateral lower extremity for the patient presented to hospital has been complaining of some burning pain in his about 5-6 out of 10 and no radiation patient currently do not have any open wound or any drainage with the center the patient has been evaluated by the ER alexandra duff on arrival to the ER patient was afebrile and no fever have been recorded subsequently did have a normal white count kidney function was normal liver exams are normal patient did have blood cultures drainage currently pending patient was started on clindamycin and has been admitted to the hospital infectious disease was consulted for further management of antibiotic therapy Past Medical History Past Medical History: Hypertension, Liver Disease, Osteoarthritis (OA), Vascular Disorder Additional Past Medical History / Comment(s): Venous insufficiency hypertension, 04/29/21 hospitalized for bilateral lower leg cellulitis, past hepatitis C/successfully treated, anemia, chronic back pain/scoliosis/slipped disc with past narcotic abuse/now on subutex. History of Any Multi-Drug Resistant Organisms: None Reported, MRSA Year Discovered:: unknown MDRO Source:: right arm Past Surgical History: Adenoidectomy, Tonsillectomy Past Anesthesia/Blood Transfusion Reactions: No Reported Reaction Smoking Status: Current every day smoker - Past Family History Mother Additional Family Medical History / Comment(s): Epilepsy. Father Additional Family Medical History / Comment(s): ETOH Medications and Allergies Home Medications Medication Instructions Recorded Confirmed Type amLODIPine [Norvasc] 10 mg PO DAILY #30 tablet 12/21/19 07/10/21 Rx Ergocalciferol (Vitamin D2) 1,250 mcg PO Q14D 04/29/21 07/10/21 History [Drisdol (50,000 Iu)] Sertraline HCl [Zoloft] 100 mg PO DAILY 04/29/21 07/10/21 History buprenorphine HCL [Subutex] 8 mg SUBLINGUAL BID 04/29/21 07/10/21 History Furosemide [Lasix] 40 mg PO DAILY #10 tab 05/02/21 07/10/21 Rx ALPRAZolam [Xanax] 2 mg PO BID 07/10/21 07/10/21 History Triamcinolone 0.1% Cream [Kenalog 1 applic TOPICAL BID 07/10/21 07/10/21 History 0.1% Cream] Allergies Allergy/AdvReac Type Severity Reaction Status Date / Time No Known Allergies Allergy Verified 07/11/21 11:38 Physical Exam Vitals: Vital Signs Temp Pulse Resp BP Pulse Ox 07/11/21 10:57 98 F 56 L 16 102/66 95 07/11/21 06:32 63 18 104/70 98 07/11/21 00:39 51 L 16 120/72 97 07/10/21 18:38 53 L 16 116/71 95 07/10/21 16:07 98.5 F 57 L 16 112/68 96 Intake and Output 07/10/21 07/11/21 07/11/21 22:59 06:59 14:59 Other: Weight 142.882 kg 142.882 kg Results CBC & Chem 7: 07/11/21 04:21 07/10/21 16:35 Labs: Abnormal Lab Results - Last 24 Hours (Table) 07/10/21 07/10/21 07/11/21 Range/Units 16:35 16:35 04:21 RBC 4.05 L (4.30-5.90) m/uL Hgb 11.1 L 12.3 L (13.0-17.5) gm/dL Hct 34.4 L (39.0-53.0) % MCHC 30.8 L (32.0-37.0) g/dL Immature Gran # 0.08 H (0.00-0.04) X 10*3/uL Glucose 108 H (74-99) mg/dL Assessment and Plan Plan: 1-Patient presented to hospital bilateral lower extremity cellulitis with diffuse swelling redness likely streptococcal disease clinically doubt MRSA or gram-negative infection 2-Marked area of the redness 3-discontinue clindamycin 4-start the patient with cefazolin 2 g every 8hr We will follow on clinical condition and cultures to further adjust medication i f needed Thank you for this consultation will follow this patient along with you Time with Patient: Greater than 30
[2021-07-12] MEDS: NICOTINE 21MG/24HR PATCH TRANSDERM SCH (09:56)
[2021-07-12] MEDS: FUROSEMIDE 40 MG TAB PO SCH (09:56)
[2021-07-12] MEDS: SERTRALINE 100 MG TAB PO SCH (09:56)
[2021-07-12] MEDS: ALPRAZolam 1 MG TAB PO SCH ×2 (09:56→21:23)
[2021-07-12] MEDS: amLODIPine 10 MG TAB PO SCH (09:56)
[2021-07-12] MEDS: NON FORMULARY DRUG (Buprenorphine Hcl [Subutex] 8 MG Tablet) SUBLINGUAL SCH ×2 (09:56→21:28)
[2021-07-12] MEDS: TRIAMCINOLONE 0.1% CREAM 80 GM TUBE TOPICAL SCH ×2 (09:57→21:24)
[2021-07-12] MEDS: SODIUM CHLORIDE 0.9% 1,000 ML IV SCH (11:56)
[2021-07-12] MEDS ORDERED: VANCOMYCIN IV PER PHARMACY 1 EACH MISC MISCELLANE PRN (13:23)
--- NOTE | 2021-07-12 14:11 | P.PN ---
Subjective Progress Note Date: 07/12/21 This is a pleasant 41-year-old male who follows with Dr. chavez in the outpatient setting and was recently admitted for bilateral lower extremity cellulitis. Patient is also being followed by infectious disease and maintained on IV cefazolin. Patient also has some triamcinolone cream that he is using as well. Patient reports that is extremely itchy and he has been attempting to avoid scratching at the sites. Patient continues with significant redness and maculopapular rash although reports being somewhat improved from yesterday. Patient reports that he has been on multiple rounds of antibiotics most recently with failure of outpatient treatment. Recommend referral to destination sign repairer in [facility] outpatient setting once discharged. Patient is afebrile and denies any nausea or vomiting. Patient denies chest pain or shortness of breath. Review of systems: Constitutional: No reports of fatigue, fever, or chills Cardiovascular: No reports of chest pain or palpitations Respiratory: No reports of shortness of breath or cough GI: No reports of nausea, no reports of of vomiting : No reports of dysuria or retention Neurovascular: No reports of weakness or numbness, reports swelling and redness of left and right lower extremities All medications have been reviewed Active Medications Acetaminophen (Acetaminophen Tab 325 Mg Tab) 650 mg PO Q6HR PRN PRN Reason: Mild Pain or Fever > 100.5 Alprazolam (Alprazolam 1 Mg Tab) 2 mg PO BID [facility] Last Admin: 07/12/21 09:56 Dose: 2 mg Documented by: Amlodipine Besylate (Amlodipine 10 Mg Tab) 10 mg PO DAILY [facility] Last Admin: 07/12/21 09:56 Dose: 10 mg Documented by: Furosemide (Furosemide 40 Mg Tab) 40 mg PO DAILY [facility] Last Admin: 07/12/21 09:56 Dose: 40 mg Documented by: Sodium Chloride (Saline 0.9%) 1,000 mls @ 75 mls/hr IV .[id number] [facility] Last Admin: 07/12/21 11:56 Dose: Not Given Documented by: Cefazolin Sodium 2 gm/ Sodium (Chloride) 50 mls @ 100 mls/hr IVPB Q8HR [facility]; Protocol Last Admin: 07/12/21 09:59 Dose: 100 mls/hr Documented by: Vancomycin HCl 2,000 mg/ (Sodium Chloride) 500 mls @ 167 mls/hr IVPB Q8H [facility] Naloxone HCl (Naloxone 0.4 Mg/Ml 1 Ml Vial) 0.2 mg IV Q2M PRN PRN Reason: Opioid Reversal Nicotine (Nicotine 21mg/24hr Patch) 1 patch TRANSDERM DAILY [facility] Last Admin: 07/12/21 09:56 Dose: 1 patch Documented by: Non-Formulary Medication (Buprenorphine Hcl [Subutex]) 8 mg SUBLINGUAL BID [facility] Last Admin: 07/12/21 09:56 Dose: Not Given Documented by: Sertraline HCl (Sertraline 100 Mg Tab) 100 mg PO DAILY [facility] Last Admin: 07/12/21 09:56 Dose: 100 mg Documented by: Triamcinolone Acetonide (Triamcinolone 0.1% Cream 80 Gm Tube) 1 applic TOPICAL BID [facility]; Protocol Last Admin: 07/12/21 09:57 Dose: 1 applic Documented by: PHYSICAL EXAMINATION: GENERAL: The patient is alert and oriented x4, Well developed, well nourished. Morbidly obese. HEENT: Pupils are round and equally reacting to light. EOMI. no scleral icterus. No conjunctival pallor. Normocephalic, atraumatic. No pharyngeal erythema. No thyromegaly. CARDIOVASCULAR: S1 and S2 muffled PULMONARY: diminished breath sounds bilaterally with no wheezing or rhonchi noted. ABDOMEN: soft. Nontender on exam. obese. non-distended, normoactive bowel sounds. No palpable organomegaly. MUSCULOSKELETAL: No joint swelling or deformity. EXTREMITIES: No cyanosis, clubbing, or pedal edema. Bilateral lower extremity redness with maculopapular raised rash noted with some surrounding swelling as well NEUROLOGICAL: Gross neurological examination did not reveal any focal deficits. SKIN: Maculopapular rash noted on bilateral lower extremities Assessment: Bilateral lower extremity cellulitis Dependent edema with venostasis changes History of hypertension History of hepatitis C, successfully treated Past medical history of MRSA Past medical history of narcotic abuse on Subutex Anxiety/depression Continued ongoing nicotine dependence GI prophylaxis DVT prophylaxis Full code Plan: Recommend to continue with current medications and IV antibiotics along with triamcinolone cream. Infectious disease is following. Patient is maintained on IV vancomycin along with cefazolin and showing some improvement in redness and swelling. Encourage the patient is elevate lower extremities while at rest and avoid scratching if at all possible. Encouraged oral intake and increased activity as tolerated. Home medications have been resumed and we will continue to monitor closely. No new labs today and will repeat a.m. labs. Patient will also be referred to dermatology in the outpatient setting and resources will be provided. The impression and plan of care has been dictated by Lorna Vergara, nurse practitioner as directed. MD Arie I have performed a history and examination and MDM of this patient, discussed the same with the dictator, and agree with the dictator's assessment and plan as written ,documented as a scribe. Based on total visit time, I have performed more than 50% of the visit. Any additional findings or plans will be noted. Objective - Vital Signs Vital signs: Vital Signs Temp 97.9 F 07/12/21 07:45 Pulse 62 07/12/21 07:45 Resp 17 07/12/21 09:29 BP 107/68 07/12/21 07:45 Pulse Ox 95 07/12/21 07:45 Intake & Output 07/11/21 07/12/21 07/12/21 18:59 06:59 18:59 Intake Total 480 Balance 480 Weight 142.882 kg Intake: Oral 480 Other: Voiding Method Toilet Toilet Toilet # Voids 2 2 - Labs CBC & Chem 7: 07/11/21 04:21 07/10/21 16:35 Labs: Microbiology - Last 24 Hours (Table) 07/10/21 16:50 Blood Culture - Preliminary Blood No Growth after 24 hours 07/10/21 16:35 Blood Culture - Preliminary Blood No Growth after 24 hours
[2021-07-12] MEDS: VANCOMYCIN 2,000 MG in SODIUM CHLORIDE 0.9% 500 ML 500 ML IVPB SCH ×2 (14:27→22:10)
[2021-07-12 18:24] LABS: African American GFR (CKD) >90 (>60 ml/min/1.73 sqM); Non-African American GFR(CKD) >90 (>60 ml/min/1.73 sqM)
--- NOTE | 2021-07-12 21:07 | P.PN ---
Subjective Progress Note Date: 07/12/21 Principal diagnosis: Bilateral lower extremity cellulitis and bacteremia Patient is a 41-year-old male presented to hospital with bilateral lower extremity swelling and redness and pain has been diagnosed with a bilateral lower extremity cellulitis subsequently the patient blood cultures came back positive for gram-positive cocci. On today's evaluation that is 07/12/2021, the patient denies having any fever or any chills, the patient is breathing comfortably bilateral lower extremity swelling redness has slightly decreased, legs are not as painful as no open wound or any drainage, denies any chest pain shortness of breath or cough no abdominal pain or diarrhea Objective - Vital Signs Vital signs: Vital Signs Temp 97.9 F 07/12/21 07:45 Pulse 62 07/12/21 07:45 Resp 17 07/12/21 09:29 BP 107/68 07/12/21 07:45 Pulse Ox 95 07/12/21 07:45 Intake & Output 07/11/21 07/12/21 07/12/21 18:59 06:59 18:59 Intake Total 480 Balance 480 Weight 142.882 kg Intake: Oral 480 Other: Voiding Method Toilet Toilet Toilet # Voids 2 2 - Exam GENERAL DESCRIPTION: Middle-age male lying in bed in no distress RESPIRATORY SYSTEM: Unlabored breathing , decreased breath sounds at bases HEART: S1 S2 regular rate and rhythm , ABDOMEN: Soft , no tenderness EXTREMITIES: Bilateral lower extremity swelling redness is slightly decreased no open wound or any drainage - Labs CBC & Chem 7: 07/11/21 04:21 07/12/21 18:00 Labs: Microbiology - Last 24 Hours (Table) 07/10/21 16:50 Blood Culture - Final Blood 07/10/21 16:35 Blood Culture - Preliminary Blood No Growth after 24 hours Assessment and Plan (1) Bilateral lower leg cellulitis Current Visit: Yes Status: Acute Code(s): L03.116 - CELLULITIS OF LEFT LOWER LIMB; L03.115 - CELLULITIS OF RIGHT LOWER LIMB SNOMED Code(s): 612777176 Plan: 1-Patient presented to hospital bilateral lower extremity cellulitis with diffuse swelling redness likely streptococcal disease clinically doubt MRSA or gram-negative infection 2Patient now with a positive blood cultures ID sensitivities pending, blood cultures will be repeated document clearance of bacteremia. 3Vancomycin pharmacy to dose target trough of 15 while watching kidney function and Vanco trough closely Time with Patient: Less than 30
[2021-07-13] MEDS: SODIUM CHLORIDE 0.9% 1,000 ML IV SCH ×3 (01:42→23:58)
[2021-07-13] MEDS: VANCOMYCIN 2,000 MG in SODIUM CHLORIDE 0.9% 500 ML 500 ML IVPB SCH (06:02)
[2021-07-13 07:38] LABS: African American GFR (CKD) >90 (>60 ml/min/1.73 sqM); Anion Gap 10 mmol/L; Blood Urea Nitrogen 10 mg/dL (9-20); Carbon Dioxide 26 mmol/L (22-30); Chloride 106 mmol/L (98-107); Glucose 117 mg/dL (74-99); Non-African American GFR(CKD) >90 (>60 ml/min/1.73 sqM); Potassium 4.2 mmol/L (3.5-5.1); Sodium 142 mmol/L (137-145)
[2021-07-13 07:43] LABS: Basophils % (A) 1 %; Eosinophils # (A) 0.1 k/uL (0-0.7); Eosinophils % (A) 2 %; HCT 42.3 % (39.0-53.0); HGB 13.6 gm/dL (13.0-17.5); Lymphocytes # (A) 1.9 k/uL (1.0-4.8); Lymphocytes % (A) 30 %; MCH 27.7 pg (25.0-35.0); MCHC 32.2 g/dL (31.0-37.0); MCV 85.9 fL (80.0-100.0); Mean Platelet Volume 7.7; Monocytes # (A) 0.3 k/uL (0-1.0); Monocytes % (A) 4 %; Neutrophils % (A) 63 %; Platelet Count 198 k/uL (150-450); RBC 4.93 m/uL (4.30-5.90); RDW 13.6 % (11.5-15.5); WBC 6.4 k/uL (3.8-10.6)
[2021-07-13] MEDS: NICOTINE 21MG/24HR PATCH TRANSDERM SCH (10:31)
[2021-07-13] MEDS: amLODIPine 10 MG TAB PO SCH (10:31)
[2021-07-13] MEDS: FUROSEMIDE 40 MG TAB PO SCH (10:31)
[2021-07-13] MEDS: SERTRALINE 100 MG TAB PO SCH (10:32)
[2021-07-13] MEDS: NON FORMULARY DRUG (Buprenorphine Hcl [Subutex] 8 MG Tablet) SUBLINGUAL SCH ×2 (10:33→21:39)
[2021-07-13] MEDS: TRIAMCINOLONE 0.1% CREAM 80 GM TUBE TOPICAL SCH ×2 (10:33→21:01)
[2021-07-13] MEDS: ALPRAZolam 1 MG TAB PO SCH ×2 (10:41→21:01)
[2021-07-13 20:41] VITALS: RESP 16
--- NOTE | 2021-07-13 22:06 | P.PN ---
Subjective Progress Note Date: 07/13/21 Principal diagnosis: Bilateral lower extremity cellulitis and bacteremia Patient is a 41-year-old male presented to hospital with bilateral lower extremity swelling and redness and pain has been diagnosed with a bilateral lower extremity cellulitis subsequently the patient blood cultures came back positive for gram-positive cocci. On today's evaluation that is 07/13/2021, the patient remains to be afebrile, the patient is breathing comfortably, denies having any chest pain shortness of breath or cough, the patient bilateral lower extremity swelling redness has sli ghtly decreased, and there is no drainage Objective - Vital Signs Vital signs: Vital Signs Temp 97.9 F 07/13/21 07:00 Pulse 61 07/13/21 07:00 Resp 20 07/13/21 07:00 BP 110/71 07/13/21 07:00 Pulse Ox 97 07/13/21 07:00 Intake & Output 07/12/21 07/13/21 07/13/21 18:59 06:59 18:59 Intake Total 200 Balance 200 Intake: Oral 200 Other: Voiding Method Toilet Toilet # Voids 1 2 - Exam GENERAL DESCRIPTION: Middle-age male lying in bed in no distress RESPIRATORY SYSTEM: Unlabored breathing , decreased breath sounds at bases HEART: S1 S2 regular rate and rhythm , ABDOMEN: Soft , no tenderness EXTREMITIES: Bilateral lower extremity swelling redness is slightly decreased no open wound or any drainage - Labs CBC & Chem 7: 07/13/21 06:51 07/13/21 06:51 Labs: Abnormal Lab Results - Last 24 Hours (Table) 07/13/21 Range/Units 06:51 Glucose 117 H (74-99) mg/dL Microbiology - Last 24 Hours (Table) 07/10/21 16:50 Blood Culture Gram Stain - Preliminary Blood 07/10/21 16:35 Blood Culture - Preliminary Blood No Growth after 48 hours 07/10/21 16:50 Blood Culture - Final Blood Assessment and Plan (1) Bilateral lower leg cellulitis Current Visit: Yes Status: Acute Code(s): L03.116 - CELLULITIS OF LEFT LOWER LIMB; L03.115 - CELLULITIS OF RIGHT LOWER LIMB SNOMED Code(s): 629200589 Plan: 1-Patient presented to hospital bilateral lower extremity cellulitis with diffuse swelling redness likely streptococcal disease clinically doubt MRSA or gram-negative infection 2Patient now with a positive blood cultures which has been identified as Micrococcus species more likely contaminant discontinue vancomycin. 3to continue with cefazolin 2 g every 8 hours with a plan to finish therapy with oral Keflex Time with Patient: Less than 30
--- NOTE | 2021-07-14 04:53 | P.PN ---
Subjective Progress Note Date: 07/13/21 This is a pleasant 41-year-old male who follows with Dr. chavez in the outpatient setting and was recently admitted for bilateral lower extremity cellulitis. Patient is also being followed by infectious disease and maintained on IV cefazolin. Patient also has some triamcinolone cream that he is using as well. Patient reports that is extremely itchy and he has been attempting to avoid scratching at the sites. Patient continues with significant redness and maculopapular rash although reports being somewhat improved from yesterday. Patient reports that he has been on multiple rounds of antibiotics most recently with failure of outpatient treatment. Recommend referral to [employer] in [facility] outpatient setting once discharged. Patient is afebrile and denies any nausea or vomiting. Patient denies chest pain or shortness of breath. 07/13/2021 Patient is seen in follow up today and is maintained on IV antibiotics with ID following. Wound cultures have been negative and blood culture was positive and showing micrococcus species and most likely a contaminant per ID and will likely need oral antibiotics on discharge. Will discuss with ID about abx. Patient is afebrile and denies any chest pain or palpitations. Patient requesting to go home. Review of systems: Constitutional: No reports of fatigue, fever, or chills Cardiovascular: No reports of chest pain or palpitations Respiratory: No reports of shortness of breath or cough GI: No reports of nausea, no reports of of vomiting : No reports of dysuria or retention Neurovascular: No reports of weakness or numbness, reports swelling and redness of left and right lower extremities that has improved All medications have been reviewed Active Medications Acetaminophen (Acetaminophen Tab 325 Mg Tab) 650 mg PO Q6HR PRN PRN Reason: Mild Pain or Fever > 100.5 Last Admin: 07/14/21 02:56 Dose: 650 mg Documented by: Alprazolam (Alprazolam 1 Mg Tab) 2 mg PO BID [facility] Last Admin: 07/13/21 21:01 Dose: 2 mg Documented by: Amlodipine Besylate (Amlodipine 10 Mg Tab) 10 mg PO DAILY [facility] Last Admin: 07/13/21 10:31 Dose: 10 mg Documented by: Furosemide (Furosemide 40 Mg Tab) 40 mg PO DAILY [facility] Last Admin: 07/13/21 10:31 Dose: 40 mg Documented by: Sodium Chloride (Saline 0.9%) 1,000 mls @ 75 mls/hr IV .[id number] [facility] Last Admin: 07/13/21 23:58 Dose: Not Given Documented by: Cefazolin Sodium 2 gm/ Sodium (Chloride) 50 mls @ 100 mls/hr IVPB Q8HR [facility]; Protocol Last Admin: 07/13/21 23:59 Dose: 100 mls/hr Documented by: Naloxone HCl (Naloxone 0.4 Mg/Ml 1 Ml Vial) 0.2 mg IV Q2M PRN PRN Reason: Opioid Reversal Nicotine (Nicotine 21mg/24hr Patch) 1 patch TRANSDERM DAILY [facility] Last Admin: 07/13/21 10:31 Dose: 1 patch Documented by: Non-Formulary Medication (Buprenorphine Hcl [Subutex]) 8 mg SUBLINGUAL BID [facility] Last Admin: 07/13/21 21:39 Dose: Not Given Documented by: Sertraline HCl (Sertraline 100 Mg Tab) 100 mg PO DAILY [facility] Last Admin: 07/13/21 10:32 Dose: 100 mg Documented by: Triamcinolone Acetonide (Triamcinolone 0.1% Cream 80 Gm Tube) 1 applic TOPICAL BID [facility]; Protocol Last Admin: 07/13/21 21:01 Dose: 1 applic Documented by: PHYSICAL EXAMINATION: GENERAL: The patient is alert and oriented x4, Well developed, well nourished. Morbidly obese. HEENT: Pupils are round and equally reacting to light. EOMI. no scleral icterus. No conjunctival pallor. Normocephalic, atraumatic. No pharyngeal erythema. No thyromegaly. CARDIOVASCULAR: S1 and S2 muffled PULMONARY: diminished breath sounds bilaterally with no wheezing or rhonchi noted. ABDOMEN: soft. Nontender on exam. obese. non-distended, normoactive bowel sounds. No palpable organomegaly. MUSCULOSKELETAL: No joint swelling or deformity. EXTREMITIES: No cyanosis, clubbing, or pedal edema. Bilateral lower extremity redness with maculopapular raised rash noted with some surrounding swelling as well and showing improvement NEUROLOGICAL: Gross neurological examination did not reveal any focal deficits. SKIN: Maculopapular rash noted on bilateral lower extremities Assessment: Bilateral lower extremity cellulitis Dependent edema with venostasis changes bacteremia, likely a contaminant with micrococcus species History of hypertension History of hepatitis C, successfully treated Past medical history of MRSA Past medical history of narcotic abuse on Subutex Anxiety/depression Continued ongoing nicotine dependence GI prophylaxis DVT prophylaxis Full code Plan: Recommend to continue with current medications and IV antibiotics along with triamcinolone cream. Infectious disease is following. Patient was maintained on IV vancomycin along with cefazolin and showing some improvement in redness and swelling. Blood cultures were positive and possibly a contaminant per ID and vancomycin being discontinued. Repeat blood cultures are negative. Encourage the patient is elevate lower extremities while at rest and avoid scratching if at all possible. Encouraged oral intake and increased activity as tolerated. Home medications have been resumed and we will continue to monitor closely. Patient will also be referred to dermatology in the outpatient setting and resou rces will be provided. Possible discharge in 24 hours. The impression and plan of care has been dictated by Lorna Vergara, nurse practitioner as directed. MD Arie I have performed a history and examination and MDM of this patient, discussed the same with the dictator, and agree with the dictator's assessment and plan as written ,documented as a scribe. Based on total visit time, I have performed more than 50% of the visit. Any additional findings or plans will be noted. Objective - Vital Signs Vital signs: Vital Signs Temp 97.9 F 07/13/21 07:00 Pulse 61 07/13/21 07:00 Resp 20 07/13/21 07:00 BP 110/71 07/13/21 07:00 Pulse Ox 97 07/13/21 07:00 Intake & Output 07/12/21 07/13/21 07/13/21 18:59 06:59 18:59 Intake Total 200 Balance 200 Intake: Oral 200 Other: Voiding Method Toilet Toilet # Voids 1 2 - Labs CBC & Chem 7: 07/13/21 06:51 07/13/21 06:51 Labs: Abnormal Lab Results - Last 24 Hours (Table) 07/13/21 Range/Units 06:51 Glucose 117 H (74-99) mg/dL Microbiology - Last 24 Hours (Table) 07/10/21 16:50 Blood Culture Gram Stain - Preliminary Blood 07/10/21 16:35 Blood Culture - Preliminary Blood No Growth after 48 hours 07/10/21 16:50 Blood Culture - Final Blood
[2021-07-14 05:32] VITALS: BP 123/72; PULSE 55; TEMP 97.8
[2021-07-14] MEDS: ALPRAZolam 1 MG TAB PO SCH (08:33)
[2021-07-14] MEDS: NICOTINE 21MG/24HR PATCH TRANSDERM SCH (08:33)
[2021-07-14] MEDS: SERTRALINE 100 MG TAB PO SCH (08:33)
[2021-07-14] MEDS: amLODIPine 10 MG TAB PO SCH (08:34)
[2021-07-14] MEDS: FUROSEMIDE 40 MG TAB PO SCH (08:34)
[2021-07-14] MEDS: NON FORMULARY DRUG (Buprenorphine Hcl [Subutex] 8 MG Tablet) SUBLINGUAL SCH (08:34)
[2021-07-14] MEDS: TRIAMCINOLONE 0.1% CREAM 80 GM TUBE TOPICAL SCH (08:34)
--- NOTE | 2021-07-14 15:22 | P.PN ---
Subjective Progress Note Date: 07/14/21 Principal diagnosis: Bilateral lower extremity cellulitis and bacteremia Patient is a 41-year-old male presented to hospital with bilateral lower extremity swelling and redness and pain has been diagnosed with a bilateral lower extremity cellulitis subsequently the patient blood cultures came back positive for gram-positive cocci. On today's evaluation that is 07/14/2021, the patient denies any fever or any chills, the patient is breathing comfortably, the patient denies having any chest pain shortness of breath or cough, the patient bilateral lower extremity swelling redness has slightly decreased, and denies any drainage Objective - Vital Signs Vital signs: Vital Signs Temp 97.8 F 07/14/21 05:32 Pulse 55 L 07/14/21 05:32 Resp 16 07/14/21 05:32 BP 123/72 07/14/21 05:32 Pulse Ox 100 07/14/21 05:32 Intake & Output 07/13/21 07/14/21 07/14/21 18:59 06:59 18:59 Intake Total 118 830 Balance 118 830 Intake: Oral 118 830 Other: Voiding Method Toilet Toilet # Voids 1 2 # Bowel Movements 1 - Exam GENERAL DESCRIPTION: Middle-age male lying in bed in no distress RESPIRATORY SYSTEM: Unlabored breathing , decreased breath sounds at bases HEART: S1 S2 regular rate and rhythm , ABDOMEN: Soft , no tenderness EXTREMITIES: Bilateral lower extremity swelling redness is slightly decreased no open wound or any drainage - Labs CBC & Chem 7: 07/13/21 06:51 07/13/21 06:51 Labs: Microbiology - Last 24 Hours (Table) 07/13/21 06:50 Blood Culture - Preliminary Blood No Growth after 24 hours 07/12/21 18:00 Blood Culture - Preliminary Blood No Growth after 24 hours 07/10/21 16:35 Blood Culture - Preliminary Blood No Growth after 72 hours 07/10/21 16:50 Blood Culture Gram Stain - Final Blood Blood Culture - Final Micrococcus species Assessment and Plan (1) Bilateral lower leg cellulitis Status: Acute Code(s): L03.116 - CELLULITIS OF LEFT LOWER LIMB; L03.115 - CELLULITIS OF RIGHT LOWER LIMB SNOMED Code(s): 229815078 Plan: 1-Patient presented to hospital bilateral lower extremity cellulitis with diffuse swelling redness likely streptococcal disease clinically doubt MRSA or gram-negative infection 2Patient now with a positive blood cultures which has been identified as Micrococcus species more likely contaminant vancomycin was discontinued yeste rday repeat blood culture negative 3patient has clinically improved with cefazolin 2 g every 8 hours with a plan to finish therapy with oral Keflex 500 mg 3 times a day for 7-10 days and close outpatient follow-up Time with Patient: Less than 30
--- NOTE | 2021-07-15 15:51 | P.DS ---
Providers Date of admission: 07/12/21 11:15 Expected date of discharge: 07/14/21 Attending physician: Ceferino Smith Consults: 07/10/21 18:45 Consult Physician Routine Consulting Provider: Marsha Mueller Consult Reason/Comments: CELLULITIS Do you want consulting provider notified?: Yes Primary care physician: Ceferino Smith Hospital Course: Final Diagnosis Bilateral lower extremity cellulitis Dependent edema with venostasis changes bacteremia, likely a contaminant with micrococcus species History of hypertension History of hepatitis C, successfully treated Past medical history of MRSA Past medical history of narcotic abuse on Subutex Anxiety/depression Continued ongoing nicotine dependence GI prophylaxis DVT prophylaxis Full code Discharge disposition Patient is being discharged in a stable condition with guarded prognosis to home. Patient will follow-up with Dr. Smith in the outpatient setting upon discharge. Patient is to follow up with dermatology and infectious disease in the outpatient setting. Prescription provided for keflex 500 mg TID for the next 10 days. Patient to continue kenalog BID as well. Strongly encouraged dermatology follow up this week. Total time taken is greater than 35 minutes. Hospital course This is a 41-year-old male who was recently admitted with bilateral rash of lower extremities with cellulitis and failed outpatient treatment. Patient follows with Dr. Smith in the outpatient setting. Patient also being followed by ID and maintained on IV antibiotics and also found to have positive blood cultures of micrococcus species and most likely a contaminant per ID and clinically responded well to cefazolin. Patient to finish keflex 500mg TID for the next 7-10 day and close outpatient follow upwith ID in one week. Patient also provided resources for dermatology. Patient strongly encouraged to avoid itching or scratching of the skin. Patient verbalized understanding. Currently no reports of chest pain, shortness of breath, or palpitations. Patient is afebrile. No reports of nausea or vomiting and patient is tolerating diet. Patient will be discharged home today. Guarded prognosis. On exam vital signs are stable. Cardio S1, S2 are muffled. Respiratory system shows diminished breath sounds at the bases with no wheezing or rhonchi noted. Abdomen is soft and obese, and nontender. Nervous system shows no focal deficits. Please refer to medication reconciliation sheet for a list of medications. The impression and plan of care has been dictated by Lorna Vergara, Nurse Practitioner as directed. Dr. Aleks MD I have performed a history and examination and MDM of this patient, discussed the same with the dictator, and agree with the dictator's assessment and plan as written ,documented as a scribe. Based on total visit time, I have performed more than 50% of the visit. Patient Condition at Discharge: Stable Plan - Discharge Summary Discharge Rx Participant: No New Discharge Prescriptions: New Cephalexin [Keflex] 500 mg PO Q6HR 10 Days #10 cap Nicotine 21Mg/24Hr Patch [Habitrol] 1 patch TRANSDERM DAILY #30 patch Acetaminophen Tab [Tylenol] 650 mg PO Q6HR PRN tab PRN Reason: Mild Pain Or Fever > 100.5 Continue amLODIPine [Norvasc] 10 mg PO DAILY #30 tablet Sertraline HCl [Zoloft] 100 mg PO DAILY Furosemide [Lasix] 40 mg PO DAILY #10 tab ALPRAZolam [Xanax] 2 mg PO BID Ergocalciferol (Vitamin D2) [Drisdol (50,000 Iu)] 1,250 mcg PO Q14D buprenorphine HCL [Subutex] 8 mg SUBLINGUAL BID Changed Triamcinolone 0.1% Cream [Kenalog 0.1% Cream] 1 applic TOPICAL BID 30 Days #2 each Discharge Medication List amLODIPine [Norvasc] 10 mg PO DAILY #30 tablet 12/21/19 [Rx] Ergocalciferol (Vitamin D2) [Drisdol (50,000 Iu)] 1,250 mcg PO Q14D 04/29/21 [History] Sertraline HCl [Zoloft] 100 mg PO DAILY 04/29/21 [History] buprenorphine HCL [Subutex] 8 mg SUBLINGUAL BID 04/29/21 [History] Furosemide [Lasix] 40 mg PO DAILY #10 tab 05/02/21 [Rx] ALPRAZolam [Xanax] 2 mg PO BID 07/10/21 [History] Acetaminophen Tab [Tylenol] 650 mg PO Q6HR PRN tab 07/14/21 [Rx] Cephalexin [Keflex] 500 mg PO Q6HR 10 Days #10 cap 07/14/21 [Rx] Nicotine 21Mg/24Hr Patch [Habitrol] 1 patch TRANSDERM DAILY #30 patch 07/14/21 [Rx] Triamcinolone 0.1% Cream [Kenalog 0.1% Cream] 1 applic TOPICAL BID 30 Days #2 each 07/14/21 [Rx] Follow up Appointment(s)/Referral(s): Ceferino Smith MD [Primary Care Provider] - 1-2 days (call for follow up) Vernell Hood MD [STAFF PHYSICIAN] - 1 Week (call for follow up) [facility], [NON-STAFF] - Marsha Mueller MD [STAFF PHYSICIAN] - 1 Week (call for follow up) [facility] [NON-STAFF] - As Needed (Contact if needing equipment.) Patient Instructions/Handouts: Cephalexin (By mouth), Triamcinolone (On the skin), Cellulitis (GEN) Activity/Diet/Wound Care/Special Instructions: Activity Limited until follow-up Follow-up with primary care provider on discharge Follow-up with dermatology early next week Continue taking medications as prescribed Continue with Kenalog cream twice daily May use Tony wraps to lower extremities and elevate while at rest Avoid itching or scratching Follow-up with infectious disease in the outpatient setting Discharge/Stand Alone Forms: Who Do I Call?, Community Resources Discharge Disposition: HOME WITH HOME HEALTH SERVICES
== END 2021-07-14 14:04 | disposition home health service (06) | DRG 603 ==
LOC: EC 15:53 → 6NMEDSUR 18:46 → OBSVTOIN 07-12 11:15 → 5NMEDONC 07-13 19:02
PROVIDERS: ADMIT Family Medicine; ATTEND Family Medicine
DX: L03.115 Cellulitis of right lower limb (principal); Z68.41 Body mass index [BMI] 40.0-44.9, adult; L03.116 Cellulitis of left lower limb; M41.9 Scoliosis, unspecified; I10 Essential (primary) hypertension; F41.9 Anxiety disorder, unspecified; F32.A Depression, unspecified; E66.9 Obesity, unspecified; G89.29 Other chronic pain; Z28.310 Unvaccinated for COVID-19; Z90.89 Acquired absence of other organs; Z86.14 Personal history of Methicillin resistant Staphylococcus aureus infection; I87.8 Other specified disorders of veins; Z79.899 Other long term (current) drug therapy
CPT/HCPCS: 36415; 80048; 80053; 82565; 83605; 85025; 85610; 85730; 87040; 99284

== ENCOUNTER 2022-05-31 16:41 | Emergency (ER) | payer OTHER ==
[2022-05-31 16:52] VITALS: BP 123/98; PULSE 73; RESP 20; TEMP 97.1
[2022-05-31] MEDS ORDERED: ONDANSETRON 4 MG/2 ML VIAL IM STA (17:19)
[2022-05-31] MEDS ORDERED: HYDROmorphone 1 MG/ML 1 ML SYRINGE IM STA (17:19)
--- NOTE | 2022-05-31 17:37 | ED ---
General Adult HPI - General Source: patient, EMS, RN notes reviewed Mode of arrival: EMS Limitations: no limitations <Virginie Burger - Last Filed: 05/31/22 19:13> <Sita Olivares - Last Filed: 05/31/22 20:08> - General Chief complaint: Back Pain/Injury Stated complaint: low back pain Time Seen by Provider: 05/31/22 16:44 - History of Present Illness Initial comments: 42-year-old male with no significant past medical history presents the emergency department with a chief complaint of low back pain. He reports he has had low back pain for 12 days. He denies any Injury or trauma. He has been taking Tylenol Motrin without symptomatic relief. He denies any fever, chills, numbness or tingling down his extremities, Saddle paresthesia, loss of bowel or bladder function. He reports worsening "muscle spasms. with movement." (Virginie Burger) - Related Data Home Medications Medication Instructions Recorded Confirmed Ergocalciferol (Vitamin D2) 1,250 mcg PO Q14D 04/29/21 05/31/22 [Drisdol (50,000 Iu)] Sertraline HCl [Zoloft] 100 mg PO DAILY 04/29/21 05/31/22 buprenorphine HCL [Subutex] 8 mg SUBLINGUAL TID 04/29/21 05/31/22 ALPRAZolam [Xanax] 2 mg PO BID PRN 07/10/21 05/31/22 Albuterol Sulfate [Albuterol 1 - 2 puff PO RT-QID PRN 05/31/22 05/31/22 Sulfate Hfa] Ammonium Lactate Cream [Lac-Hydrin 1 applic TOPICAL BID 05/31/22 05/31/22 12% Cream] Triamcinolone 0.1% Cream [Kenalog 1 applic TOPICAL BID 05/31/22 05/31/22 0.1% Cream] Previous Rx's Medication Instructions Recorded amLODIPine [Norvasc] 10 mg PO DAILY #30 tablet 12/21/19 Furosemide [Lasix] 40 mg PO DAILY #10 tab 05/02/21 Nicotine 21Mg/24Hr Patch [Habitrol] 1 patch TRANSDERM DAILY #30 patch 07/14/21 Allergies Allergy/AdvReac Type Severity Reaction Status Date / Time No Known Allergies Allergy Verified 05/31/22 17:53 Review of Systems ROS Other: All systems not noted in ROS Statement are negative. <Virginie Burger - Last Filed: 05/31/22 19:13> ROS Other: All systems not noted in ROS Statement are negative. <Sita Olivares - Last Filed: 05/31/22 20:08> ROS Statement: Those systems with pertinent positive or pertinent negative responses have been documented in the HPI. Past Medical History Past Medical History: Hypertension, Liver Disease, Osteoarthritis (OA), Vascular Disorder Additional Past Medical History / Comment(s): Venous insufficiency hypertension, 04/29/21 hospitalized for bilateral lower leg cellulitis, past hepatitis C/successfully treated, anemia, chronic back pain/scoliosis/slipped disc with past narcotic abuse/now on subutex. History of Any Multi-Drug Resistant Organisms: None Reported, MRSA Date of last positivie culture/infection: unknown MDRO Source:: right arm Past Surgical History: Adenoidectomy, Tonsillectomy Past Anesthesia/Blood Transfusion Reactions: No Reported Reaction Past Psychological History: Anxiety, Depression Smoking Status: Current every day smoker Past Alcohol Use History: None Reported Past Drug Use History: None Reported - Past Family History Mother Additional Family Medical History / Comment(s): Epilepsy. Father Additional Family Medical History / Comment(s): ETOH <RuddymingVirginie chiang - Last Filed: 05/31/22 19:13> General Exam Limitations: no limitations General appearance: alert, in no apparent distress Head exam: Present: atraumatic, normocephalic, normal inspection Eye exam: Present: normal appearance, PERRL, EOMI. Absent: scleral icterus, conjunctival injection, periorbital swelling ENT exam: Present: normal exam, mucous membranes moist Neck exam: Present: normal inspection. Absent: tenderness, meningismus, lymphadenopathy Respiratory exam: Present: normal lung sounds bilaterally. Absent: respiratory distress, wheezes, rales, rhonchi, stridor Cardiovascular Exam: Present: regular rate, normal rhythm, normal heart sounds. Absent: systolic murmur, diastolic murmur, rubs, gallop, clicks GI/Abdominal exam: Present: soft, normal bowel sounds. Absent: distended, tenderness, guarding, rebound, rigid Extremities exam: Present: normal inspection, full ROM, normal capillary refill. Absent: tenderness, pedal edema, joint swelling, calf tenderness Back exam: Present: normal inspection Neurological exam: Present: alert, oriented X3, CN II-XII intact Psychiatric exam: Present: normal affect, normal mood Skin exam: Present: warm, dry, intact, normal color. Absent: rash <Virginie Burger - Last Filed: 05/31/22 19:13> Course <Virginie Burger - Last Filed: 05/31/22 19:13> Vital Signs 05/31/22 16:44 Temperature 97.1 F L Pulse Rate 73 Respiratory 20 Rate Blood Pressure 123/98 O2 Sat by Pulse 96 Oximetry - Reevaluation(s) Reevaluation #1: 05/31/22 18:43 Patient reevaluated. Patient refusing Zofran at this time. Patient states that his urine is darker than normal. UA ordered. Patient remains stable and in no acute distress. (Virginie Burger) Reevaluation #2: 05/31/22 19:13 Patient was given Dilaudid with symptomatic relief while in the ED. Patient requesting additional testing. Patient educated on natural history of low back pain. Patient encouraged to provide urine sample however is unable to at this time. Case discussed with HUGO Buckner who agrees to assume care of the patient. (Virginie Burger) Medical Decision Making - Radiology Data Radiology results: report reviewed, image reviewed <Sita Olivares - Last Filed: 05/31/22 20:08> - Medical Decision Making Was patient admitted / discharged? Hospital course, mention meds given and route, prescriptions, significant lab abnormalities, going to OR and other pertinent info. @ -Report was received for handoff from Fredy PERAZA of 42-year-old male presenting to the emergency room via EMS with complaints of back pain worse with movement making it difficult for him to walk. He reports the inability to walk however he is actively moving his limbs in the bed without any evidence of musculoskeletal deficits. He has no red flag symptoms. KUB was completed and Dilaudid was given IM. KUB negative for acute abdominal process. Mild scoliosis noted. No evidence of renal stones. Advise patient of musculoskeletal complaints no indication for serum studies or urinalysis studies. Patient adamant that "something is wrong" and that he needs a urine test and serum studies done along with an IV placed. Advised patient that this is not indicated for his back pain symptoms that he is experiencing. Patient reports that he is unable to walk and that he cannot urinate however he has good bilateral lower extremity strength and has urinated into a urinal without complications; he no evidence of prolonged bed status indicating lack of clothing changes, bowel or bladder incontinence or disheveled appearance. Will discharge patient home in stable condition advising follow-up with primary care provider for further evaluation and treatment of acute on chronic low back pain. Undiagnosed new problem with uncertain prognosis? @ -No Drug Therapy requiring intensive monitoring for toxicity (Heparin, Nitro, Insulin, Cardizem)? @ -No Were any procedures done? @ -No Diagnosis/symptom? @ -Low back pain Acute, or Chronic, or Acute on Chronic? @ -Acute on chronic Uncomplicated (without systemic symptoms) or Complicated (systemic symptoms)? @ -Uncomplicated Side effects of treatment? @ -No Exacerbation, Progression, or Severe Exacerbation? @ -No Poses a threat to life or bodily function? How? (Chest pain, [place], [place], pneumonia, PE, COPD, DKA, ARF, appy, cholecystitis, CVA, Diverticulitis, Homicidal, Suicidal, threat to staff... and all critical care pts) @ -No Case discussed with Dr. Hoff. (Sita Olivares) Disposition Is patient prescribed a controlled substance at d/c from ED?: No Time of Disposition: 17:38 <Virginie Burger - Last Filed: 05/31/22 19:13> Is patient prescribed a controlled substance at d/c from ED?: No Time of Disposition: 20:08 <Sita Olivares - Last Filed: 05/31/22 20:08> Clinical Impression: Mechanical back pain Disposition: HOME SELF-CARE Condition: Stable Instructions (If sedation given, give patient instructions): Acute Low Back Pain (ED), Lower Back Exercises (ED) Additional Instructions: Utilize [id number] Tylenol or Motrin as needed for back pain. Avoid bed rest and heavy lifting. Low back exercises are encouraged. Please follow-up with your primary care provider for further evaluation your back pain. Please return to the nearest emergency department if symptoms are, saddle paresthesia, loss of bowel or bladder function developed. Referrals: Ceferino Smith MD [Primary Care Provider] - 1-2 days
--- NOTE | 2022-05-31 19:28 | XR ---
EXAMINATION TYPE: XR KUB DATE OF EXAM: 05/31/2022 COMPARISON: NONE HISTORY: Flank pain TECHNIQUE: 3 views FINDINGS: There is no sign of intestinal obstruction or pneumoperitoneum. Fecal pattern is normal. No evidence of a mass. Lung bases are clear. No pathologic calcification of the kidneys. IMPRESSION: Nonacute abdomen.
== END 2022-05-31 20:17 | disposition home or self-care (01) ==
LOC: EC 16:41
DX: M54.50 Low back pain, unspecified (principal); I10 Essential (primary) hypertension; M19.90 Unspecified osteoarthritis, unspecified site; F41.9 Anxiety disorder, unspecified; F32.A Depression, unspecified; F17.200 Nicotine dependence, unspecified, uncomplicated; Z79.899 Other long term (current) drug therapy
CPT/HCPCS: 74018; 99284; 96372; J1170

== ENCOUNTER 2023-01-18 12:38 | Emergency (ER) | payer OTHER ==
--- NOTE | 2023-01-18 12:48 | ED ---
General Adult HPI - General Chief complaint: Seizure Stated complaint: Seizure Time Seen by Provider: 01/18/23 12:42 Source: patient, EMS Mode of arrival: EMS Limitations: no limitations - History of Present Illness Initial comments: Patient presents to the ED by ambulance for evaluation. Patient states that he has been weaning himself off of his Xanax and buprenorphine over the past month or so, and he states that he has been developing more and more anxiety. Patient states that he completely stopped taking both his Xanax and his buprenorphine 2 weeks ago, and he states that he has been more anxious since then. Patient states that this morning he felt very anxious and began hyperventilating. Patient states that his hands and feet then "curled up", and he states that he then "passed out". Patient states that he feels better now, but he continues to feel anxious. Patient admits to smoking marijuana from time to time, and he states that his last use was yesterday. Patient denies any other illicit drug use. Patient denies alcohol use, medication abuse or overdose, suicidal ideations, homicidal ideations, hallucinations, trauma or injury, any pain, fever, headache, focal neuro deficit, chest pain or pressure, dyspnea, palpitations, abdominal pain, nausea/vomiting/diarrhea, bloody or melanotic stool, dysuria or urinary symptoms, or any other symptoms or complaints. - Related Data Home Medications Medication Instructions Recorded Confirmed Ergocalciferol (Vitamin D2) 1,250 mcg PO Q14D 04/29/21 01/18/23 [Drisdol (50,000 Iu)] Albuterol Sulfate [Albuterol 1 - 2 puff INHALATION RT-QID PRN 05/31/22 01/18/23 Sulfate Hfa] Cyclobenzaprine [Flexeril] 10 mg PO TID PRN 01/18/23 01/18/23 diphenhydrAMINE [Benadryl] 50 mg PO Q6H PRN 01/18/23 01/18/23 Previous Rx's Medication Instructions Recorded amLODIPine [Norvasc] 10 mg PO DAILY #30 tablet 12/21/19 Nicotine 21Mg/24Hr Patch [Habitrol] 1 patch TRANSDERM DAILY #30 patch 07/14/21 ALPRAZolam [Xanax] 0.5 mg PO DAILY PRN #3 tablet 01/18/23 Allergies Allergy/AdvReac Type Severity Reaction Status Date / Time No Known Allergies Allergy Verified 01/18/23 14:47 Review of Systems ROS Statement: Those systems with pertinent positive or pertinent negative responses have been documented in the HPI. ROS Other: All systems not noted in ROS Statement are negative. Past Medical History Past Medical History: Hypertension, Liver Disease, Osteoarthritis (OA), Vascular Disorder Additional Past Medical History / Comment(s): Venous insufficiency hypertension, 04/29/21 hospitalized for bilateral lower leg cellulitis, past hepatitis C/ successfully treated, anemia, chronic back pain/scoliosis/slipped disc with past narcotic abuse/now on subutex. History of Any Multi-Drug Resistant Organisms: None Reported, MRSA Date of last positivie culture/infection: unknown MDRO Source:: right arm Past Surgical History: Adenoidectomy, Tonsillectomy Past Anesthesia/Blood Transfusion Reactions: No Reported Reaction Past Psychological History: Anxiety, Depression Smoking Status: Light tobacco smoker Past Alcohol Use History: None Reported Past Drug Use History: None Reported - Past Family History Mother Additional Family Medical History / Comment(s): Epilepsy. Father Additional Family Medical History / Comment(s): ETOH General Exam Limitations: no limitations General appearance: alert, anxious Head exam: Present: atraumatic, normocephalic Eye exam: Present: normal appearance, PERRL, EOMI ENT exam: Present: mucous membranes moist Respiratory exam: Present: normal lung sounds bilaterally. Absent: respiratory distress, wheezes, rales, rhonchi, stridor Cardiovascular Exam: Present: regular rate, normal rhythm, normal heart sounds, other (Normal radial pulses bilaterally) GI/Abdominal exam: Present: soft. Absent: distended, tenderness, guarding Extremities exam: Present: full ROM. Absent: tenderness, pedal edema Neurological exam: Present: alert, oriented X3, CN II-XII intact. Absent: motor sensory deficit Psychiatric exam: Present: anxious Skin exam: Present: warm, dry, normal color Course Vital Signs 01/18/23 12:40 Temperature 98.5 F Pulse Rate 91 Respiratory 16 Rate Blood Pressure 159/87 O2 Sat by Pulse 94 L Oximetry - Reevaluation(s) Reevaluation #1: 01/18/23 19:02 EPS nurse has evaluated the patient in the ED. She recommends discharge home with a prescription for 3 pills of Xanax to hold him over until he can be seen by [facility]. She does not feel that the patient requires acute psychiatric admission. She has no further recommendations at this time. EKG Findings - EKG Comments: EKG Findings:: ED physician interpretation (interpreted by me): Normal sinus rhythm, occasional premature supraventricular complexes, ventricular rate of 77 bpm, normal IN and QRS intervals, normal QT interval, normal axis, no ST or T- wave abnormality Medical Decision Making - Medical Decision Making Was pt. sent in by a medical professional or institution (KARMEN Farooq, DATA OPERATIONS MANAGER, urgent care, hospital, or usp...) When possible be specific @ -No Did you speak to anyone other than the patient for history (EMS, parent, family, police, friend...)? What history was obtained from this source @ -No Did you review nursing and triage notes (agree or disagree)? Why? @ -I reviewed and agree with nursing and triage notes Were old charts reviewed (outside hosp., previous admission, EMS record, old EKG, old radiological studies, urgent care reports/EKG's, usp records)? Report findings @ -No old charts were reviewed Differential Diagnosis (chest pain, altered mental status, abdominal pain women, abdominal pain men, vaginal bleeding, weakness, fever, dyspnea, syncope, headache, dizziness, GI bleed, back pain, seizure, CVA, palpatations, mental health, musculoskeletal)? @ -Anxiety, panic attack, panic disorder, depression, medication reaction, medication withdrawal, carpopedal spasm, syncope, vasovagal syncope, dysrhythmia, anemia, hypoglycemia, electrolyte abnormality, medication abuse, drug abuse, illicit drug use EKG interpreted by me (3pts min.). @ -As above X-rays interpreted by me (1pt min.). @ -None done CT interpreted by me (1pt min.). @ -None done U/S interpreted by me (1pt. min.). @ -None done What testing was considered but not performed or refused? (CT, X-rays, U/S, labs)? Why? @ -None What meds were considered but not given or refused? Why? @ -None Did you discuss the management of the patient with other professionals (professionals i.e. KARMEN Farooq, DATA OPERATIONS MANAGER, lab, RT, psych nurse, oncology social work, ditch tender, teacher, detention officer, egg caser)? Give summary @ -No Was smoking cessation discussed for >3mins.? @ -No Was critical care preformed (if so, how long)? @ -No Were there social determinants of health that impacted care today? How? (Homelessness, low income, unemployed, alcoholism, drug addiction, transportation, low edu. Level, literacy, decrease access to med. care, fci, rehab)? @ -No Was there de-escalation of care discussed even if they declined (Discuss DNR or withdrawal of care, Hospice)? DNR status @ -No What co-morbidities impacted this encounter? (DM, HTN, Smoking, COPD, CAD, Cancer, CVA, ARF, Chemo, Hep., AIDS, mental health diagnosis, sleep apnea, morbid obesity)? @ -None Was patient admitted / discharged? Hospital course, mention meds given and route, prescriptions, significant lab abnormalities, going to OR and other pertinent info. @ -Other than nonspecific leukocytosis and marijuana on urine drug screen, the patient's labs are fairly unremarkable. Patient is afebrile and has no source/symptoms of infection. Patient reports becoming anxious, hyperventilating, then having carpal-pedal spasms prior to reportedly passing out. I suspect that the patient's symptoms are likely due to anxiety/panic attack. Patient was medically cleared in the ED, and he was evaluated by EPS in the ED. EPS nurse recommends discharging the patient home, and she states that the patient will be followed up as an outpatient with [facility]. Will discharge patient home with a prescription for a 3 Xanax pills per EPS nurse's recommendation. Patient feels comfortable with this plan. Patient was counseled about anxiety/panic attacks, and he was clearly explained return and follow-up instructions. Patient was instructed to follow up closely with his primary care provider. Patient feels comfortable with this plan. Undiagnosed new problem with uncertain prognosis? @ -No Drug Therapy requiring intensive monitoring for toxicity (Heparin, Nitro, Insulin, Cardizem)? @ -No Were any procedures done? @ -No Diagnosis/symptom? @ -Anxiety and panic attack Acute, or Chronic, or Acute on Chronic? @ -default Uncomplicated (without systemic symptoms) or Complicated (systemic symptoms)? @ -default Side effects of treatment? @ -No Exacerbation, Progression, or Severe Exacerbation? @ -No Poses a threat to life or bodily function? How? (Chest pain, [place], [place], pneumonia, PE, COPD, DKA, ARF, appy, cholecystitis, CVA, Diverticulitis, Homicidal, Suicidal, threat to staff... and all critical care pts) @ -No - Lab Data Result diagrams: 01/18/23 13:01 01/18/23 13:01 Lab Results 01/18/23 01/18/23 01/18/23 Range/Units 13: 13: 13:01 WBC 15.8 H (3.8-10.6) k/uL RBC 5.26 (4.30-5.90) m/uL Hgb 15.0 (13.0-17.5) gm/dL Hct 43.9 (39.0-53.0) % MCV 83.5 (80.0-100.0) fL MCH 28.5 (25.0-35.0) pg MCHC 34.1 (31.0-37.0) g/dL RDW 13.7 (11.5-15.5) % Plt Count 287 (150-450) k/uL MPV 7.3 Neutrophils % 85 % Lymphocytes % 10 % Monocytes % 4 % Eosinophils % 0 % Basophils % 0 % Neutrophils # 13.4 H (1.3-7.7) k/uL Lymphocytes # 1.5 (1.0-4.8) k/uL Monocytes # 0.7 (0-1.0) k/uL Eosinophils # 0.0 (0-0.7) k/uL Basophils # 0.0 (0-0.2) k/uL Sodium 140 (137-145) mmol/L Potassium 5.1 (3.5-5.1) mmol/L Chloride 103 (98-107) mmol/L Carbon Dioxide 21 L (22-30) mmol/L Anion Gap 16 mmol/L BUN 17 (9-20) mg/dL Creatinine 0.88 (0.66-1.25) mg/dL Est GFR (CKD-EPI)AfAm >90 (>60 ml/min/1.73 sqM) Est GFR (CKD-EPI)NonAf >90 (>60 ml/min/1.73 sqM) Glucose 103 H (74-99) mg/dL Calcium 10.6 H (8.4-10.2) mg/dL Magnesium 2.9 H (1.6-2.3) mg/dL Total Bilirubin 0.8 (0.2-1.3) mg/dL AST 32 (17-59) U/L ALT 30 (4-49) U/L Alkaline Phosphatase 95 (38-126) U/L Troponin I <0.012 (0.000-0.034) ng/mL Total Protein 9.8 H (6.3-8.2) g/dL Albumin 5.3 H (3.5-5.0) g/dL Urine Opiates Screen (NotDetected) Ur Oxycodone Screen (NotDetected) Urine Methadone Screen (NotDetected) Ur Propoxyphene Screen (NotDetected) Ur Barbiturates Screen (NotDetected) U Tricyclic Antidepress (NotDetected) Ur Phencyclidine Scrn (NotDetected) Ur Amphetamines Screen (NotDetected) U Methamphetamines Scrn (NotDetected) U Benzodiazepines Scrn (NotDetected) Urine Cocaine Screen (NotDetected) U Marijuana (THC) Screen (NotDetected) Serum Alcohol <10 mg/dL 01/18/23 Range/Units 13:01 WBC (3.8-10.6) k/uL RBC (4.30-5.90) m/uL Hgb (13.0-17.5) gm/dL Hct (39.0-53.0) % MCV (80.0-100.0) fL MCH (25.0-35.0) pg MCHC (31.0-37.0) g/dL RDW (11.5-15.5) % Plt Count (150-450) k/uL MPV Neutrophils % % Lymphocytes % % Monocytes % % Eosinophils % % Basophils % % Neutrophils # (1.3-7.7) k/uL Lymphocytes # (1.0-4.8) k/uL Monocytes # (0-1.0) k/uL Eosinophils # (0-0.7) k/uL Basophils # (0-0.2) k/uL Sodium (137-145) mmol/L Potassium (3.5-5.1) mmol/L Chloride (98-107) mmol/L Carbon Dioxide (22-30) mmol/L Anion Gap mmol/L BUN (9-20) mg/dL Creatinine (0.66-1.25) mg/dL Est GFR (CKD-EPI)AfAm (>60 ml/min/1.73 sqM) Est GFR (CKD-EPI)NonAf (>60 ml/min/1.73 sqM) Glucose (74-99) mg/dL Calcium (8.4-10.2) mg/dL Magnesium (1.6-2.3) mg/dL Total Bilirubin (0.2-1.3) mg/dL AST (17-59) U/L ALT (4-49) U/L Alkaline Phosphatase (38-126) U/L Troponin I (0.000-0.034) ng/mL Total Protein (6.3-8.2) g/dL Albumin (3.5-5.0) g/dL Urine Opiates Screen Not Detected (NotDetected) Ur Oxycodone Screen Not Detected (NotDetected) Urine Methadone Screen Not Detected (NotDetected) Ur Propoxyphene Screen Not Detected (NotDetected) Ur Barbiturates Screen Not Detected (NotDetected) U Tricyclic Antidepress Not Detected (NotDetected) Ur Phencyclidine Scrn Not Detected (NotDetected) Ur Amphetamines Screen Not Detected (NotDetected) U Methamphetamines Scrn Not Detected (NotDetected) U Benzodiazepines Scrn Not Detected (NotDetected) Urine Cocaine Screen Not Detected (NotDetected) U Marijuana (THC) Screen Detected H (NotDetected) Serum Alcohol mg/dL Disposition Clinical Impression: Anxiety, Medication withdrawal, Marijuana abuse Narrative: Suspected panic attack Disposition: HOME SELF-CARE Condition: Stable Instructions (If sedation given, give patient instructions): Anxiety (ED), Panic Attack (ED) Additional Instructions: Return to the ER immediately should you develop thoughts of hurting yourself or others, passing out, feeling dizzy or faint, any significant pain, a fever, or new or worsening symptoms. Follow up closely with your primary care provider, as well as [facility]. Prescriptions: ALPRAZolam [Xanax] 0.5 mg PO DAILY PRN #3 tablet PRN Reason: Anxiety Is patient prescribed a controlled substance at d/c from ED?: No Referrals: Ceferino Smith MD [Primary Care Provider] - 1-2 days Time of Disposition: 19:08
[2023-01-18 12:54] VITALS: TEMP 98.5
[2023-01-18 14:06] LABS: Basophils % (A) 0 %; Eosinophils % (A) 0 %; HCT 43.9 % (39.0-53.0); Lymphocytes # (A) 1.5 k/uL (1.0-4.8); Lymphocytes % (A) 10 %; MCH 28.5 pg (25.0-35.0); MCHC 34.1 g/dL (31.0-37.0); MCV 83.5 fL (80.0-100.0); Mean Platelet Volume 7.3; Monocytes # (A) 0.7 k/uL (0-1.0); Monocytes % (A) 4 %; Neutrophils # (A) 13.4 k/uL (1.3-7.7); Neutrophils % (A) 85 %; Platelet Count 287 k/uL (150-450); RBC 5.26 m/uL (4.30-5.90); RDW 13.7 % (11.5-15.5); WBC 15.8 k/uL (3.8-10.6)
[2023-01-18 14:21] LABS: ALT 30 U/L (4-49); AST 32 U/L (17-59); African American GFR (CKD) >90 (>60 ml/min/1.73 sqM); Albumin 5.3 g/dL (3.5-5.0); Alcohol <10 mg/dL; Alkaline Phosphatase 95 U/L (38-126); Anion Gap 16 mmol/L; Blood Urea Nitrogen 17 mg/dL (9-20); Calcium 10.6 mg/dL (8.4-10.2); Carbon Dioxide 21 mmol/L (22-30); Chloride 103 mmol/L (98-107); Glucose 103 mg/dL (74-99); Magnesium 2.9 mg/dL (1.6-2.3); Non-African American GFR(CKD) >90 (>60 ml/min/1.73 sqM); Potassium 5.1 mmol/L (3.5-5.1); Sodium 140 mmol/L (137-145); Total Bilirubin 0.8 mg/dL (0.2-1.3); Total Protein 9.8 g/dL (6.3-8.2)
[2023-01-18 14:31] LABS: Amphetamine Screen,Urine Not Detected (NotDetected); Barbiturate Screen,Urine Not Detected (NotDetected); Benzodiazepines Screen,Urine Not Detected (NotDetected); Cocaine Screen,Urine Not Detected (NotDetected); Methadone Screen, Urine Not Detected (NotDetected); Opiate Screen,Urine Not Detected (NotDetected); Oxycodone Screen, Urine Not Detected (NotDetected); Phencyclidine Screen,Urine Not Detected (NotDetected); Tricyclic Antidepressant,Urine Not Detected (NotDetected); Urn Cannabinoid Scrn Detected (NotDetected)
[2023-01-18] MEDS ORDERED: LORazepam 1 MG TAB PO STA (16:19)
[2023-01-18 19:14] VITALS: BP 136/80; PULSE 85; RESP 18
== END 2023-01-18 19:17 | disposition home or self-care (01) ==
LOC: EC 12:38
DX: R56.9 Unspecified convulsions (principal); F41.0 Panic disorder [episodic paroxysmal anxiety]; F12.10 Cannabis abuse, uncomplicated; F19.239 Other psychoactive substance dependence with withdrawal, unspecified; I10 Essential (primary) hypertension; F17.200 Nicotine dependence, unspecified, uncomplicated; Z79.899 Other long term (current) drug therapy
CPT/HCPCS: 36415; 93005; 80053; 83735; 84484; 85025; 80306; 99285; G0480; 80320